=== PATIENT | male | born 1945 | race Caucasian/White ===

== ENCOUNTER 2018-06-09 09:06 | Emergency (ER) | payer MEDICARE ==
[~2018-06-09] VITALS: Ht 170.2 cm; Wt 95.2 kg
[2018-06-09] MEDS ORDERED: ATOR40TA PO (09:21)
[2018-06-09] MEDS ORDERED: ASPI81CH PO (09:22)
[2018-06-09] MEDS ORDERED: VITAMIN D32000 UNI1 PO (09:31)
[2018-06-09] MEDS ORDERED: INSR10I SC (09:32)
[2018-06-09] MEDS ORDERED: INSULANPEN SC (09:32)
[2018-06-09] MEDS ORDERED: LIOT5 PO (09:33)
[2018-06-09] MEDS ORDERED: LEVSOD137 PO (09:33)
[2018-06-09] MEDS ORDERED: LOSA50 PO (09:33)
[2018-06-09] MEDS ORDERED: Hair, Skin & N1 EACH PO (09:34)
[2018-06-09] MEDS ORDERED: OCUVITE ADULT1 EACH PO (09:34)
[2018-06-09 09:44] LABS: Hematocrit 44.4 % (37.0-53.0); Hemoglobin 14.6 g/dL (13.5-17.5); Mean Corpuscular HGB 29.3 pg (26.0-34.0); Mean Corpuscular HGB Conc 32.9 g/dL (31.5-36.5); Mean Corpuscular Volume 89 fL (80-100); Mean Platelet Volume 11.7 fL (9.1-12.4); Platelet Count 167 K/mm3 (150-400); RDW Coefficient Variation 15.1 % (11.7-14.2); RDW Standard Deviation 49.7 fL (35.1-46.3); Red Blood Cell Count 4.98 M/mm3 (4.30-5.90)
[2018-06-09 10:06] LABS: Alanine Aminotransfer (ALT/SGP 65 U/L (12-78); Albumin, Blood 3.1 g/dL (3.4-5.0); Albumin/Globulin Ratio 1.1 (0.8-1.8); Alk Phos 193 U/L (50-136); Anion Gap 8 mmol/L (6-16); Aspartate Aminotrans (AST/SGOT 52 U/L (12-37); Bilirubin, Total 0.6 mg/dL (0.1-1.0); Blood Urea Nitrogen 21 mg/dL (8-24); Bun/Creatinine Ratio 15.9 (12.0-20.0); CO2, Blood 24 mmol/L (21-32); Calcium, Blood 8.3 mg/dL (8.5-10.1); Chloride, Blood 105 mmol/L (98-108); Creatinine, Blood 1.32 mg/dL (0.60-1.20); Globulin, Blood 2.7 g/dL (2.2-4.0); Glomerular Filtration Rate 56 (60-); Glucose, Blood 203 mg/dL (70-99); Potassium, Blood 4.3 mmol/L (3.5-5.5); Sodium, Blood 137 mmol/L (136-145); Total Protein, Blood 5.8 g/dL (6.4-8.2); Troponin I <0.015 ng/mL (0.000-0.040)
[2018-06-09 10:10] LABS: BAND PERCENT MAN 4 % (0-8); BASOPHILS PERCENT MAN 0 % (0-2); EOSINOPHILS ABSOLUTE MAN 0.09 K/mm3 (0.00-0.68); EOSINOPHILS PERCENT MAN 1 % (0-6); LYMPHOCYTES % ATYPICAL MANUAL 7 % (0-0); LYMPHOCYTES ABSOLUTE MAN 1.86 K/mm3 (0.84-5.20); LYMPHOCYTES PERCENT MAN 12 % (21-46); MONOCYTES ABSOLUTE MAN 0.58 K/mm3 (0.16-1.47); MONOCYTES PERCENT MAN 6 % (4-13); MYELOCYTE ABSOLUTE MAN 0.09 K/mm3 (0.00-0.00); MYELOCYTE PERCENT MAN 1 % (0-0); NEUTROPHILS ABSOLUTE MAN 7.15 K/mm3 (1.96-9.15); SEG NEUTROPHILS PERCENT MAN 69 % (41-73); TOTAL CELLS COUNTED 100
[2018-06-09] MEDS ORDERED: Norco 5-325 Ta1 EACH PO (10:19)
== END 2018-06-09 10:45 | disposition home or self-care (01) ==
LOC: ER 09:06
PROVIDERS: Internal Medicine
DX: S29.9XXA Unspecified injury of thorax, initial encounter (principal); E03.9 Hypothyroidism, unspecified; E78.5 Hyperlipidemia, unspecified; I10 Essential (primary) hypertension; Z79.899 Other long term (current) drug therapy; Z79.4 Long term (current) use of insulin; X58.XXXA Exposure to other specified factors, initial encounter
CPT/HCPCS: 36415; 71046; 80053; 84484; 85025; 93005; 93010; 99285-25

== ENCOUNTER 2019-06-27 13:22 | Emergency (ER) | payer MEDICARE ==
[~2019-06-27] VITALS: Ht 167.6 cm; Wt 81.7 kg
[~2019-06-27 13:22] MED LIST: ASPI81CH PO; ATOR40TA PO; Hair, Skin & N1 EACH PO; INSR10I SC; INSULANPEN SC; LEVSOD137 PO; LIOT5 PO; LOSA50 PO; Norco 5-325 Ta1 EACH PO; OCUVITE ADULT1 EACH PO; VITAMIN D32000 UNI1 PO
[2019-06-27] MEDS ORDERED: FURO20 PO (13:59)
[2019-06-27] MEDS ORDERED: METF500 PO (13:59)
[2019-06-27] MEDS ORDERED: HYDHCL25 (14:00)
[2019-06-27] MEDS ORDERED: ZOLOFT50 MG PO (14:00)
[2019-06-27 14:13] LABS: BASOPHILS ABSOLUTE AUTO 0.09 K/mm3 (0.00-0.23); BASOPHILS PERCENT AUTO 1 % (0-2); EOSINOPHILS ABSOLUTE AUTO 0.22 K/mm3 (0.00-0.68); EOSINOPHILS PERCENT AUTO 3 % (0-6); Hematocrit 43.4 % (37.0-53.0); Hemoglobin 13.9 g/dL (13.5-17.5); IMMATURE GRAN ABSOLUTE AUTO 0.04 K/mm3 (0.00-0.10); IMMATURE GRAN PERCENT AUTO 1 % (0-1); LYMPHOCYTES ABSOLUTE AUTO 2.86 K/mm3 (0.84-5.20); LYMPHOCYTES PERCENT AUTO 35 % (21-46); MONOCYTES ABSOLUTE AUTO 0.59 K/mm3 (0.16-1.47); MONOCYTES PERCENT AUTO 7 % (4-13); Mean Corpuscular HGB 29.9 pg (26.0-34.0); Mean Corpuscular Volume 93 fL (80-100); Mean Platelet Volume 11.6 fL (9.1-12.4); NEUTROPHILS ABSOLUTE AUTO 4.39 K/mm3 (1.96-9.15); NEUTROPHILS PERCENT AUTO 54 % (41-73); Platelet Count 198 K/mm3 (150-400); RDW Coefficient Variation 14.2 % (11.7-14.2); RDW Standard Deviation 48.7 fL (35.1-46.3); Red Blood Cell Count 4.65 M/mm3 (4.30-5.90); White Blood Cell Count 8.19 K/mm3 (4.00-11.30)
[2019-06-27 14:28] LABS: Acetaminophen, Random <2.0 ug/mL (10.0-30.0); Alanine Aminotransfer (ALT/SGP 26 U/L (12-78); Albumin, Blood 3.3 g/dL (3.4-5.0); Albumin/Globulin Ratio 1.1 (0.8-1.8); Alk Phos 107 U/L (50-136); Anion Gap 4 mmol/L (6-16); Aspartate Aminotrans (AST/SGOT 25 U/L (12-37); Bilirubin, Total 0.4 mg/dL (0.1-1.0); Blood Urea Nitrogen 18 mg/dL (8-24); Bun/Creatinine Ratio 17.8 (12.0-20.0); CO2, Blood 31 mmol/L (21-32); Calcium, Blood 8.6 mg/dL (8.5-10.1); Chloride, Blood 99 mmol/L (98-108); Creatinine, Blood 1.01 mg/dL (0.60-1.20); Ethanol (Alcohol), Blood, Med <3 mg/dL; Globulin, Blood 2.9 g/dL (2.2-4.0); Glomerular Filtration Rate >60 (60-); Glucose, Blood 306 mg/dL (70-99); Potassium, Blood 4.6 mmol/L (3.5-5.5); Salicylate <1.7 mg/dL (2.8-20.0); Sodium, Blood 134 mmol/L (136-145); Total Protein, Blood 6.2 g/dL (6.4-8.2)
[2019-06-27] MEDS ORDERED: PRAZ2 PO (15:52)
== END 2019-06-27 16:20 | disposition home or self-care (01) ==
LOC: ER 13:22
PROVIDERS: Physician Assistant
DX: F43.10 Post-traumatic stress disorder, unspecified (principal); Z79.899 Other long term (current) drug therapy; Z79.4 Long term (current) use of insulin
CPT/HCPCS: 36415; 80053; 85025; 99284; G0480

== ENCOUNTER 2019-09-04 11:31 | Emergency (ER) | payer MEDICARE ==
[~2019-09-04] VITALS: Ht 167.6 cm; Wt 85.7 kg
[~2019-09-04 11:31] MED LIST changes: +FURO20 PO; +HYDHCL25; +METF500 PO; +PRAZ2 PO; +ZOLOFT50 MG PO
== END 2019-09-04 13:16 | disposition home or self-care (01) ==
LOC: ER 11:31
DX: J40 Bronchitis, not specified as acute or chronic (principal); J06.9 Acute upper respiratory infection, unspecified; E11.9 Type 2 diabetes mellitus without complications; I10 Essential (primary) hypertension; E03.9 Hypothyroidism, unspecified; F43.10 Post-traumatic stress disorder, unspecified; Z79.4 Long term (current) use of insulin; Z79.899 Other long term (current) drug therapy
CPT/HCPCS: 71046; 99283-25

== ENCOUNTER 2019-10-26 11:08 | Emergency (ER) | payer MEDICARE ==
[~2019-10-26] VITALS: Ht 167.6 cm; Wt 88.0 kg
[2019-10-26] MEDS ORDERED: Naproxen375 MG PO (12:36)
== END 2019-10-26 13:05 | disposition home or self-care (01) ==
LOC: ER 11:08
DX: M54.16 Radiculopathy, lumbar region (principal); I10 Essential (primary) hypertension; E11.9 Type 2 diabetes mellitus without complications; E78.5 Hyperlipidemia, unspecified; F43.10 Post-traumatic stress disorder, unspecified; E03.9 Hypothyroidism, unspecified; Z79.899 Other long term (current) drug therapy; Z79.4 Long term (current) use of insulin
CPT/HCPCS: 72100; 99283-25

== ENCOUNTER → 2020-05-10 | Outpatient (CLI) | payer MEDICARE ==
[~2020-05-10] MED LIST changes: +Naproxen375 MG PO
[2020-05-10 10:31] LABS: BASOPHILS ABSOLUTE AUTO 0.05 K/mm3 (0.00-0.23); BASOPHILS PERCENT AUTO 1 % (0-2); EOSINOPHILS ABSOLUTE AUTO 0.25 K/mm3 (0.00-0.68); EOSINOPHILS PERCENT AUTO 4 % (0-6); Hematocrit 39.9 % (37.0-53.0); Hemoglobin 13.3 g/dL (13.5-17.5); IMMATURE GRAN ABSOLUTE AUTO 0.03 K/mm3 (0.00-0.10); IMMATURE GRAN PERCENT AUTO 1 % (0-1); LYMPHOCYTES ABSOLUTE AUTO 2.08 K/mm3 (0.84-5.20); LYMPHOCYTES PERCENT AUTO 32 % (21-46); MONOCYTES ABSOLUTE AUTO 0.58 K/mm3 (0.16-1.47); MONOCYTES PERCENT AUTO 9 % (4-13); Mean Corpuscular HGB 30.1 pg (26.0-34.0); Mean Corpuscular HGB Conc 33.3 g/dL (31.5-36.5); Mean Corpuscular Volume 90 fL (80-100); Mean Platelet Volume 11.2 fL (9.1-12.4); NEUTROPHILS ABSOLUTE AUTO 3.45 K/mm3 (1.96-9.15); NEUTROPHILS PERCENT AUTO 54 % (41-73); Platelet Count 161 K/mm3 (150-400); RDW Coefficient Variation 13.9 % (11.7-14.2); RDW Standard Deviation 46.4 fL (35.1-46.3); Red Blood Cell Count 4.42 M/mm3 (4.30-5.90); White Blood Cell Count 6.44 K/mm3 (4.00-11.30)
[2020-05-10 10:48] LABS: Alanine Aminotransfer (ALT/SGP 27 U/L (12-78); Albumin, Blood 3.2 g/dL (3.4-5.0); Albumin/Globulin Ratio 1.1 (0.8-1.8); Alk Phos 104 U/L (40-126); Anion Gap 7 mmol/L (6-16); Aspartate Aminotrans (AST/SGOT 24 U/L (12-37); Bilirubin, Total 0.4 mg/dL (0.1-1.0); Blood Urea Nitrogen 17 mg/dL (8-24); Bun/Creatinine Ratio 14.5 (12.0-20.0); CO2, Blood 28 mmol/L (21-32); Calcium, Blood 8.5 mg/dL (8.5-10.1); Chloride, Blood 101 mmol/L (98-108); Creatinine, Blood 1.17 mg/dL (0.60-1.20); Globulin, Blood 2.8 g/dL (2.2-4.0); Glomerular Filtration Rate >60 (60-); Glucose, Blood 277 mg/dL (70-99); Potassium, Blood 4.1 mmol/L (3.5-5.5); Sodium, Blood 136 mmol/L (136-145); Thyroid Stimulating Hormone 3.943 uIU/mL (0.360-4.800)
[2020-05-10 10:52] LABS: Troponin I <0.017 ng/mL (0.000-0.040)
== END | disposition home or self-care (01) ==
LOC: LAB EV 10:19 → LAB SHORT 10:19
PROVIDERS: Physician Assistant
DX: R53.83 Other fatigue (principal)
CPT/HCPCS: 80053; 84443; 84484; 85025

== ENCOUNTER 2020-10-16 12:28 | Observation (INO) | payer MEDICARE ==
[~2020-10-16] VITALS: Ht 167.6 cm; Wt 81.8 kg
[~2020-10-16 12:28] MED LIST changes: +HUMULIN R100 UNIT/1 SC; -INSR10I SC
[2020-10-16 13:33] LABS: Source, Urine Clean Catch
[2020-10-16 13:41] LABS: BASOPHILS ABSOLUTE AUTO 0.06 K/mm3 (0.00-0.23); BASOPHILS PERCENT AUTO 1 % (0-2); EOSINOPHILS ABSOLUTE AUTO 0.11 K/mm3 (0.00-0.68); EOSINOPHILS PERCENT AUTO 1 % (0-6); Hematocrit 43.4 % (37.0-53.0); Hemoglobin 13.5 g/dL (13.5-17.5); IMMATURE GRAN ABSOLUTE AUTO 0.04 K/mm3 (0.00-0.10); IMMATURE GRAN PERCENT AUTO 0 % (0-1); LYMPHOCYTES ABSOLUTE AUTO 1.99 K/mm3 (0.84-5.20); LYMPHOCYTES PERCENT AUTO 20 % (21-46); MONOCYTES PERCENT AUTO 8 % (4-13); Mean Corpuscular HGB 28.4 pg (26.0-34.0); Mean Corpuscular HGB Conc 31.1 g/dL (31.5-36.5); Mean Corpuscular Volume 91 fL (80-100); Mean Platelet Volume 11.7 fL (9.1-12.4); NEUTROPHILS ABSOLUTE AUTO 6.99 K/mm3 (1.96-9.15); NEUTROPHILS PERCENT AUTO 70 % (41-73); Platelet Count 210 K/mm3 (150-400); RDW Coefficient Variation 15.6 % (11.7-14.2); RDW Standard Deviation 52.8 fL (35.1-46.3); Red Blood Cell Count 4.75 M/mm3 (4.30-5.90); White Blood Cell Count 9.99 K/mm3 (4.00-11.30)
[2020-10-16 13:43] LABS: Bilirubin, Urine Neg (Neg); Blood, Urine Neg (Neg); Glucose Qualitative, Urine 4+ (Neg); Ketones, Urine 1+ (Neg); Leukocyte Esterase, Urine Neg (Neg); Nitrite, Urine Neg (Neg); Protein, Urine Neg (Neg); Specific Gravity, Urine 1.015 (1.003-1.022); Urobilinogen, Urine NORM (Normal)
[2020-10-16 13:50] LABS: Appearance, Urine Clear (Clear); Color, Urine Pale Yellow (P-Yellow)
[2020-10-16] MEDS ORDERED: ARIPIPRAZOLE10 M1 PO (13:51)
[2020-10-16] MEDS ORDERED: EUTHYROX100 MC1 PO (13:51)
[2020-10-16] MEDS ORDERED: GABA100 PO (13:52)
[2020-10-16] MEDS ORDERED: SERT100 PO (13:52)
[2020-10-16 13:56] LABS: U Amphetamine Screen Not Detected; U Barbituate Screen Not Detected; U Benzodiazapine Screen Not Detected; U Buprenorphine Screen Not Detected; U Cannabinoids Screen Not Detected; U Cocaine Screen Not Detected; U Methadone Screen Not Detected; U Methamphetamine Screen Not Detected; U Opiates Screen Not Detected; U Oxycodone Screen Not Detected; U Phencyclidine Screen Not Detected; U Propoxyphene Screen Not Detected
[2020-10-16] MEDS ORDERED: Aspirin EC81 MG PO (14:01)
[2020-10-16] MEDS ORDERED: INSULIN AS100 UNIT/9 SC (14:01)
[2020-10-16 14:18] LABS: Alanine Aminotransfer (ALT/SGP 27 U/L (12-78); Albumin, Blood 3.6 g/dL (3.4-5.0); Albumin/Globulin Ratio 1.2 (0.8-1.8); Alk Phos 138 U/L (50-136); Anion Gap 5 mmol/L (6-16); Aspartate Aminotrans (AST/SGOT 25 U/L (12-37); Bilirubin, Total 0.5 mg/dL (0.1-1.0); Blood Urea Nitrogen 24 mg/dL (8-24); Bun/Creatinine Ratio 20.9 (12.0-20.0); CO2, Blood 27 mmol/L (21-32); Calcium, Blood 8.7 mg/dL (8.5-10.1); Chloride, Blood 98 mmol/L (98-108); Creatinine, Blood 1.15 mg/dL (0.60-1.20); Ethanol (Alcohol), Blood, Med <3 mg/dL; Glomerular Filtration Rate >60 (60-); Glucose, Blood 561 mg/dL (70-99); Potassium, Blood 4.7 mmol/L (3.5-5.5); Salicylate <1.7 mg/dL (2.8-20.0); Sodium, Blood 130 mmol/L (136-145); Total Protein, Blood 6.6 g/dL (6.4-8.2)
[2020-10-16 14:23] LABS: Acetaminophen, Random <2.0 ug/mL (10.0-30.0)
[2020-10-16 17:40] LABS: Influenza A, PCR NEGATIVE (NEGATIVE); Influenza B, PCR NEGATIVE (NEGATIVE); Resp Syncytial Virus, PCR NEGATIVE (NEGATIVE); SARS-Cov-2 (COVID-19) PCR, MMC NEGATIVE (NEGATIVE)
[2020-10-16 20:22] LABS: Glucose, Blood 681 mg/dL (70-99)
--- NOTE | 2020-10-16 20:52 | NUR ---
REPORT RECEIVED 2024 FROM TIRE LAYER. PT TRANSPORTED AND ARRIVED IN ICU ROOM 10 VIA STRETCHER ON RA. A&O. PT STAND AND WALK TO ICU BED, NO DISTRESS NOTED. VITALS DONE, NOTED IN FLOWSHEET, STABLE AT THIS TIME. MD & PICK AND SHOVEL WORKER AWARE OF PT ARRIVAL. PT IS A HOLD-VISIUAL MONITOR ON IN ROOM. CONTINUE ASSESSMENT AND CARE.
--- NOTE | 2020-10-16 21:24 | NUR ---
NOTIFIED-PT WITH HIGH CBG'S. PT ON FLOOR. IVF, INSULIN GTT ORDERED. ADA DIET ORDERED. CONTINUE ADMIT
--- NOTE | 2020-10-16 23:09 | NUR ---
DR. CARVER AT BEDSIDE. AWARE OF INCREASED CBG, AND AWARE OF HIGH SUICIDE RISK LEVEL. LEATHER CRAFTSMAN AWARE.
[2020-10-16 23:58] LABS: Free Thyroxine 1.28 ng/dL (0.70-1.60)
[2020-10-16 23:59] LABS: Glucose, Blood 554 mg/dL (70-99); Thyroid Stimulating Hormone 0.791 uIU/mL (0.360-4.800)
--- NOTE | 2020-10-17 01:00 | NUR ---
ASSESS PT REMAINS CALM, ANSWERS QUESTIONS, SAMANO, ABLE TO TURN SELF IN BED, ON RA, CONTINUE INSULIN GTT TITRATION AND IVF @ 75 ML/HR. CONTINUE ASSESSMENTS AND CARE.
[2020-10-17 03:17] LABS: BASOPHILS ABSOLUTE AUTO 0.06 K/mm3 (0.00-0.23); BASOPHILS PERCENT AUTO 1 % (0-2); EOSINOPHILS ABSOLUTE AUTO 0.21 K/mm3 (0.00-0.68); EOSINOPHILS PERCENT AUTO 3 % (0-6); IMMATURE GRAN ABSOLUTE AUTO 0.02 K/mm3 (0.00-0.10); IMMATURE GRAN PERCENT AUTO 0 % (0-1); LYMPHOCYTES PERCENT AUTO 37 % (21-46); MONOCYTES ABSOLUTE AUTO 0.78 K/mm3 (0.16-1.47); MONOCYTES PERCENT AUTO 12 % (4-13); Mean Corpuscular HGB 28.8 pg (26.0-34.0); Mean Corpuscular HGB Conc 32.4 g/dL (31.5-36.5); Mean Corpuscular Volume 89 fL (80-100); Mean Platelet Volume 11.4 fL (9.1-12.4); NEUTROPHILS ABSOLUTE AUTO 3.04 K/mm3 (1.96-9.15); NEUTROPHILS PERCENT AUTO 47 % (41-73); Platelet Count 190 K/mm3 (150-400); RDW Coefficient Variation 15.3 % (11.7-14.2); RDW Standard Deviation 50.2 fL (35.1-46.3); Red Blood Cell Count 4.17 M/mm3 (4.30-5.90); White Blood Cell Count 6.51 K/mm3 (4.00-11.30)
[2020-10-17 03:37] LABS: Alanine Aminotransfer (ALT/SGP 23 U/L (12-78); Albumin/Globulin Ratio 1.2 (0.8-1.8); Alk Phos 121 U/L (50-136); Anion Gap 2 mmol/L (6-16); Aspartate Aminotrans (AST/SGOT 23 U/L (12-37); Bilirubin, Total 0.3 mg/dL (0.1-1.0); Blood Urea Nitrogen 25 mg/dL (8-24); Bun/Creatinine Ratio 22.7 (12.0-20.0); CO2, Blood 31 mmol/L (21-32); Calcium, Blood 8.4 mg/dL (8.5-10.1); Chloride, Blood 104 mmol/L (98-108); Globulin, Blood 2.5 g/dL (2.2-4.0); Glomerular Filtration Rate >60 (60-); Glucose, Blood 215 mg/dL (70-99); Potassium, Blood 4.2 mmol/L (3.5-5.5); Sodium, Blood 137 mmol/L (136-145); Total Protein, Blood 5.5 g/dL (6.4-8.2)
--- NOTE | 2020-10-17 04:00 | NUR ---
ASSESS PT A&O, CALM. INSULIN GTT OFF @ THIS TIME, SEE RESULTS FOR CBG'S. VITALS STABLE, PT REMAINS IN SB 50'S WITH NO SYMPTOMS. CONTINUE TO ASSESS.
--- NOTE | 2020-10-17 06:24 | NUR ---
END OF SHIFT PT REMAINS CALM AND COOPERATIVE T/O NIGHT. INSULIN GTT NOW OFF. LONG ACTING DOSE GIVEN, SEE MAR. NS INFUSING @ 75 ML/HR. VITALS STABLE. CONTINUE CARE.
--- NOTE | 2020-10-17 10:51 | NUR ---
PT IS A/O AND APPROP. BUT WITHDRAWN AND VERY QUIET. PT IS COOP AND WILLING TO ALLOW ASSISTANCE WITH CARE. FEEDING SELF AND EASILY UP TO CHAIR WITH SBA. DR PATEL HAS BEEN IN TO VIST PT.
--- NOTE | 2020-10-17 13:09 | NUR ---
ADMIT: 10/16/20 DISCHARGE: DX: agitation, hallucinations, and suicidal ideation. CC: ALLA CALL: RESIDENCE: Home with spouse CAREGIVER: Maira Mayen, Spouse / Partner, DX: Depressive disorder, HTN, DM-type 2, see list DME: DM supplies CCM: Referral- 08/2020 HOME HEALTH: none SUMMARY: Admit: 10/16/20 10/17/20- per chart review with Dr. Driscoll, he is trying to get pt admitted into a psychiatric in hospital in [place]. There are calls out to facilities in [place] for placement. Once a place has been found, will update. Dr. crouch state that he thinks is agreeable to this plan. -tamera
--- NOTE | 2020-10-17 16:00 | NUR ---
PT IN TO VISIT AND UPDATED RE PT STATUS. PT AND INFORMED OF EARLY PM TRANSPORT VIA [facility] TO [facility]. PAPER WORK BEING COMPILED.
--- NOTE | 2020-10-17 18:29 | NUR ---
1800 PT DISCHARGED TO [facility]. PT FINISHING SUPPER AND WAS GIVEN TRAY BEFORE CBG WAS RECORDED. IV'S WERE REMOVED INTACT AND PT BELONGING ALL PLACED IN PT [place] AND TAKEN TO CAR, THEN PT TO CAR VIA W/C. ETA AND LAST MINUTE UPDATE REPORT CALLED TO [facility] AND AUGUST [address] REPORT FAXED PER REQUEST TO [facility] [phone]. PT REMAINED A/O, COOPERATIVE, AND PLEASANT WTIH ALL OF CARE THIS DAY.
== END 2020-10-17 17:57 | disposition short-term general hospital (02) ==
LOC: ER 12:28 → EOR 12:29 → ICUW 19:07
PROVIDERS: Emergency Medicine; Physician Assistant; ADMIT Internal Medicine
DX: F33.1 Major depressive disorder, recurrent, moderate (principal); F43.12 Post-traumatic stress disorder, chronic; E11.65 Type 2 diabetes mellitus with hyperglycemia; I10 Essential (primary) hypertension; E78.5 Hyperlipidemia, unspecified; E03.9 Hypothyroidism, unspecified; Z79.4 Long term (current) use of insulin; Z20.822 Contact with and (suspected) exposure to COVID-19
CPT/HCPCS: 0241U; 36415; 80053; 81003; 82947; 84439; 84443; 85025; 96372; 99285; A9270; G0378; G0480; J1650; J1815; J7030; Q3014

== ENCOUNTER 2021-01-02 20:46 | Emergency (ER) | payer MEDICARE | END 2021-01-03 00:30 | disposition home or self-care (01) | LOC: ER 20:46 | DX: T43.221A Poisoning by selective serotonin reuptake inhibitors, accidental (unintentional), initial encounter (principal); E03.9 Hypothyroidism, unspecified; E11.9 Type 2 diabetes mellitus without complications; I10 Essential (primary) hypertension; E78.5 Hyperlipidemia, unspecified; Z79.4 Long term (current) use of insulin; Z79.899 Other long term (current) drug therapy ==

== ENCOUNTER 2021-01-18 22:27 | Observation (INO) | payer OTHER ==
[~2021-01-18] VITALS: Ht 170.2 cm; Wt 83.5 kg
[~2021-01-18 22:27] MED LIST changes: +ARIPIPRAZOLE10 M1 PO; +Aspirin EC81 MG PO; +EUTHYROX100 MC1 PO; +GABA100 PO; +INSULIN AS100 UNIT/9 SC; +SERT100 PO
[2021-01-19 00:42] LABS: U Amphetamine Screen Not Detected; U Barbituate Screen Not Detected; U Benzodiazapine Screen Not Detected; U Buprenorphine Screen Not Detected; U Cannabinoids Screen Not Detected; U Cocaine Screen Not Detected; U Methadone Screen Not Detected; U Methamphetamine Screen Not Detected; U Opiates Screen Not Detected; U Oxycodone Screen Not Detected; U Phencyclidine Screen Not Detected; U Propoxyphene Screen Not Detected
[2021-01-19 00:54] LABS: BASOPHILS ABSOLUTE AUTO 0.03 K/mm3 (0.00-0.23); BASOPHILS PERCENT AUTO 0 % (0-2); EOSINOPHILS PERCENT AUTO 0 % (0-6); Hemoglobin 14.1 g/dL (13.5-17.5); IMMATURE GRAN ABSOLUTE AUTO 0.04 K/mm3 (0.00-0.10); IMMATURE GRAN PERCENT AUTO 0 % (0-1); LYMPHOCYTES ABSOLUTE AUTO 2.85 K/mm3 (0.84-5.20); LYMPHOCYTES PERCENT AUTO 32 % (21-46); MONOCYTES ABSOLUTE AUTO 0.96 K/mm3 (0.16-1.47); MONOCYTES PERCENT AUTO 11 % (4-13); Mean Corpuscular HGB 29.6 pg (26.0-34.0); Mean Corpuscular HGB Conc 32.8 g/dL (31.5-36.5); Mean Corpuscular Volume 90 fL (80-100); Mean Platelet Volume 11.2 fL (9.1-12.4); NEUTROPHILS ABSOLUTE AUTO 5.14 K/mm3 (1.96-9.15); NEUTROPHILS PERCENT AUTO 57 % (41-73); Platelet Count 233 K/mm3 (150-400); RDW Coefficient Variation 13.2 % (11.7-14.2); RDW Standard Deviation 43.9 fL (35.1-46.3); Red Blood Cell Count 4.76 M/mm3 (4.30-5.90); White Blood Cell Count 9.02 K/mm3 (4.00-11.30)
[2021-01-19 01:15] LABS: Acetaminophen, Random <2.0 ug/mL (10.0-30.0); Alanine Aminotransfer (ALT/SGP 30 U/L (12-78); Albumin, Blood 3.5 g/dL (3.4-5.0); Albumin/Globulin Ratio 1.1 (0.8-1.8); Alk Phos 116 U/L (50-136); Anion Gap 4 mmol/L (6-16); Aspartate Aminotrans (AST/SGOT 22 U/L (12-37); Bilirubin, Total 0.3 mg/dL (0.1-1.0); Blood Urea Nitrogen 23 mg/dL (8-24); Bun/Creatinine Ratio 20.9 (12.0-20.0); CO2, Blood 29 mmol/L (21-32); Calcium, Blood 8.9 mg/dL (8.5-10.1); Chloride, Blood 105 mmol/L (98-108); Ethanol (Alcohol), Blood, Med <3 mg/dL; Globulin, Blood 3.2 g/dL (2.2-4.0); Glomerular Filtration Rate >60 (60-); Glucose, Blood 151 mg/dL (70-99); Potassium, Blood 3.8 mmol/L (3.5-5.5); Salicylate <1.7 mg/dL (2.8-20.0); Sodium, Blood 138 mmol/L (136-145); Total Protein, Blood 6.7 g/dL (6.4-8.2)
[2021-01-19 01:44] LABS: SARS-Cov-2 (COVID-19) PCR, MMC NEGATIVE (NEGATIVE)
[2021-01-19] MEDS ORDERED: ABILIFY MYCITE5 M1 PO (13:27)
== END 2021-01-19 14:00 | disposition home or self-care (01) ==
LOC: ER 22:27 → EOR 22:28
PROVIDERS: ADMIT Emergency Medicine
DX: F43.10 Post-traumatic stress disorder, unspecified (principal); F33.9 Major depressive disorder, recurrent, unspecified; E03.9 Hypothyroidism, unspecified; E11.9 Type 2 diabetes mellitus without complications; I10 Essential (primary) hypertension; E78.5 Hyperlipidemia, unspecified; Z91.5 Personal history of self-harm; Z20.822 Contact with and (suspected) exposure to COVID-19; Z79.4 Long term (current) use of insulin; Z79.82 Long term (current) use of aspirin
CPT/HCPCS: 36415; 80053; 82947; 85025; 93005; 93010; 99285; G0378; G0480; Q3014; U0004

== ENCOUNTER 2021-01-27 11:03 | Emergency (ER) | payer OTHER ==
[~2021-01-27] VITALS: Ht 167.6 cm; Wt 78.0 kg
[~2021-01-27 11:03] MED LIST changes: +ABILIFY MYCITE5 M1 PO
[2021-01-27] MEDS ORDERED: ARTIFICIAL TEAR15 M4 BOTHEYES (14:18)
== END 2021-01-27 14:26 | disposition home or self-care (01) ==
LOC: ER 11:03
DX: T65.893A Toxic effect of other specified substances, assault, initial encounter (principal); J68.0 Bronchitis and pneumonitis due to chemicals, gases, fumes and vapors; H10.212 Acute toxic conjunctivitis, left eye
CPT/HCPCS: 99283; A9270

== ENCOUNTER 2021-03-30 14:38 | Emergency (ER) | payer MEDICARE ==
[~2021-03-30] VITALS: Ht 167.6 cm; Wt 82.5 kg
[~2021-03-30 14:38] MED LIST changes: +ARTIFICIAL TEAR15 M4 BOTHEYES
[2021-03-30 15:28] LABS: BASOPHILS ABSOLUTE AUTO 0.06 K/mm3 (0.00-0.23); BASOPHILS PERCENT AUTO 1 % (0-2); EOSINOPHILS PERCENT AUTO 0 % (0-6); Hematocrit 45.2 % (37.0-53.0); Hemoglobin 14.8 g/dL (13.5-17.5); IMMATURE GRAN ABSOLUTE AUTO 0.04 K/mm3 (0.00-0.10); IMMATURE GRAN PERCENT AUTO 0 % (0-1); LYMPHOCYTES ABSOLUTE AUTO 2.24 K/mm3 (0.84-5.20); LYMPHOCYTES PERCENT AUTO 22 % (21-46); MONOCYTES PERCENT AUTO 7 % (4-13); Mean Corpuscular HGB Conc 32.7 g/dL (31.5-36.5); Mean Corpuscular Volume 89 fL (80-100); NEUTROPHILS ABSOLUTE AUTO 7.18 K/mm3 (1.96-9.15); NEUTROPHILS PERCENT AUTO 70 % (41-73); Platelet Count 260 K/mm3 (150-400); RDW Coefficient Variation 14.1 % (11.7-14.2); RDW Standard Deviation 45.7 fL (35.1-46.3); Red Blood Cell Count 5.11 M/mm3 (4.30-5.90); White Blood Cell Count 10.22 K/mm3 (4.00-11.30)
[2021-03-30 15:40] LABS: Acetaminophen, Random <2.0 ug/mL (10.0-30.0); Alanine Aminotransfer (ALT/SGP 27 U/L (12-78); Albumin, Blood 3.7 g/dL (3.4-5.0); Albumin/Globulin Ratio 1.1 (0.8-1.8); Alk Phos 145 U/L (50-136); Anion Gap 5 mmol/L (6-16); Aspartate Aminotrans (AST/SGOT 20 U/L (12-37); Bilirubin, Total 0.5 mg/dL (0.1-1.0); Blood Urea Nitrogen 18 mg/dL (8-24); Bun/Creatinine Ratio 16.5 (12.0-20.0); CO2, Blood 28 mmol/L (21-32); Calcium, Blood 9.3 mg/dL (8.5-10.1); Chloride, Blood 103 mmol/L (98-108); Creatinine, Blood 1.09 mg/dL (0.60-1.20); Ethanol (Alcohol), Blood, Med <3 mg/dL; Globulin, Blood 3.4 g/dL (2.2-4.0); Glomerular Filtration Rate >60 (60-); Glucose, Blood 276 mg/dL (70-99); Potassium, Blood 4.2 mmol/L (3.5-5.5); Salicylate <1.7 mg/dL (2.8-20.0); Sodium, Blood 136 mmol/L (136-145); Total Protein, Blood 7.1 g/dL (6.4-8.2)
[2021-03-30] MEDS ORDERED: ERYT.5TO RIGHTEYE (17:51)
== END 2021-03-30 18:05 | disposition home or self-care (01) ==
LOC: ER 14:38
PROVIDERS: Physician Assistant
DX: S05.01XA Injury of conjunctiva and corneal abrasion without foreign body, right eye, initial encounter (principal); E03.9 Hypothyroidism, unspecified; E11.9 Type 2 diabetes mellitus without complications; E78.5 Hyperlipidemia, unspecified; I10 Essential (primary) hypertension; Z79.899 Other long term (current) drug therapy; X58.XXXA Exposure to other specified factors, initial encounter
CPT/HCPCS: 36415; 80053; 85025; 99284; A9270; G0480

== ENCOUNTER 2021-04-01 14:39 | Emergency (ER) | payer MEDICARE ==
[~2021-04-01] VITALS: Ht 167.6 cm; Wt 83.5 kg
[~2021-04-01 14:39] MED LIST changes: +ERYT.5TO RIGHTEYE
== END 2021-04-01 15:30 | disposition home or self-care (01) ==
LOC: ER 14:39
DX: S60.221A Contusion of right hand, initial encounter (principal); M25.531 Pain in right wrist; I10 Essential (primary) hypertension; E11.9 Type 2 diabetes mellitus without complications; E03.9 Hypothyroidism, unspecified; E78.5 Hyperlipidemia, unspecified; Z79.899 Other long term (current) drug therapy; Z79.4 Long term (current) use of insulin; Z79.82 Long term (current) use of aspirin; W22.8XXA Striking against or struck by other objects, initial encounter
CPT/HCPCS: 73130; 99283-25

== ENCOUNTER 2021-05-07 17:03 | Observation (INO) | payer MEDICARE ==
[~2021-05-07] VITALS: Ht 167.6 cm; Wt 83.5 kg
[2021-05-07 17:50] LABS: Source, Urine Clean Catch
[2021-05-07 17:58] LABS: BASOPHILS ABSOLUTE AUTO 0.07 K/mm3 (0.00-0.23); BASOPHILS PERCENT AUTO 1 % (0-2); EOSINOPHILS PERCENT AUTO 0 % (0-6); Hemoglobin 14.5 g/dL (13.5-17.5); IMMATURE GRAN ABSOLUTE AUTO 0.01 K/mm3 (0.00-0.10); IMMATURE GRAN PERCENT AUTO 0 % (0-1); LYMPHOCYTES ABSOLUTE AUTO 3.05 K/mm3 (0.84-5.20); LYMPHOCYTES PERCENT AUTO 39 % (21-46); MONOCYTES ABSOLUTE AUTO 0.69 K/mm3 (0.16-1.47); MONOCYTES PERCENT AUTO 9 % (4-13); Mean Corpuscular Volume 88 fL (80-100); Mean Platelet Volume 11.9 fL (9.1-12.4); NEUTROPHILS ABSOLUTE AUTO 3.92 K/mm3 (1.96-9.15); NEUTROPHILS PERCENT AUTO 51 % (41-73); Platelet Count 212 K/mm3 (150-400); RDW Coefficient Variation 14.1 % (11.7-14.2); RDW Standard Deviation 45.5 fL (35.1-46.3); White Blood Cell Count 7.74 K/mm3 (4.00-11.30)
[2021-05-07 18:12] LABS: Appearance, Urine Clear (Clear); Bilirubin, Urine Neg (Neg); Blood, Urine Neg (Neg); Color, Urine Yellow (P-Yellow); Glucose Qualitative, Urine 3+ (Neg); Ketones, Urine 2+ (Neg); Leukocyte Esterase, Urine Neg (Neg); Nitrite, Urine Neg (Neg); Protein, Urine 2+ (Neg); Specific Gravity, Urine 1.015 (1.003-1.022); Urobilinogen, Urine NORM (Normal); pH, Urine 6.5 (5.0-8.0)
[2021-05-07 18:22] LABS: Bacteria Few /hpf
[2021-05-07 18:23] LABS: Acetaminophen, Random <2.0 ug/mL (10.0-30.0); Alanine Aminotransfer (ALT/SGP 22 U/L (12-78); Albumin, Blood 3.3 g/dL (3.4-5.0); Albumin/Globulin Ratio 1.1 (0.8-1.8); Alk Phos 131 U/L (50-136); Anion Gap 3 mmol/L (6-16); Aspartate Aminotrans (AST/SGOT 14 U/L (12-37); Bilirubin, Total 0.5 mg/dL (0.1-1.0); Blood Urea Nitrogen 17 mg/dL (8-24); Bun/Creatinine Ratio 13.4 (12.0-20.0); CO2, Blood 32 mmol/L (21-32); Chloride, Blood 103 mmol/L (98-108); Creatinine, Blood 1.27 mg/dL (0.60-1.20); Ethanol (Alcohol), Blood, Med <3 mg/dL; Globulin, Blood 3.1 g/dL (2.2-4.0); Glomerular Filtration Rate 55 (60-); Glucose, Blood 163 mg/dL (70-99); Potassium, Blood 4.2 mmol/L (3.5-5.5); Salicylate <1.7 mg/dL (2.8-20.0); Sodium, Blood 138 mmol/L (136-145); Total Protein, Blood 6.4 g/dL (6.4-8.2)
[2021-05-07 18:23] LABS: Hyaline Casts 0-2 /lpf (0-2); Red Blood Cells, Urine Rare /hpf (0-2); Squamous Epithelial Cells Not Seen /hpf (Few); White Blood Cells, Urine Not Seen /hpf (0-5)
[2021-05-07 18:30] LABS: U Amphetamine Screen Not Detected; U Barbituate Screen Not Detected; U Benzodiazapine Screen Not Detected; U Buprenorphine Screen Not Detected; U Cannabinoids Screen Not Detected; U Cocaine Screen Not Detected; U Methadone Screen Not Detected; U Methamphetamine Screen Not Detected; U Opiates Screen Not Detected; U Oxycodone Screen Not Detected; U Phencyclidine Screen Not Detected; U Propoxyphene Screen Not Detected
[2021-05-07 18:57] LABS: SARS-Cov-2 (COVID-19) PCR, MMC NEGATIVE (NEGATIVE)
[2021-05-07 19:44] LABS: Influenza A, PCR NEGATIVE (NEGATIVE); Influenza B, PCR NEGATIVE (NEGATIVE); Resp Syncytial Virus, PCR NEGATIVE (NEGATIVE)
[2021-05-08] MEDS ORDERED: DEPAKOTE ER250 M2 PO (08:39)
[2021-05-08] MEDS ORDERED: PROP10 PO (08:40)
== END 2021-05-09 02:33 ==
LOC: ER 17:03 → EOR 17:04
PROVIDERS: Physician Assistant; ADMIT Emergency Medicine
DX: F31.9 Bipolar disorder, unspecified (principal); I10 Essential (primary) hypertension; E11.9 Type 2 diabetes mellitus without complications; E78.5 Hyperlipidemia, unspecified; E03.9 Hypothyroidism, unspecified; Z79.4 Long term (current) use of insulin; Z20.822 Contact with and (suspected) exposure to COVID-19
CPT/HCPCS: 0241U; 80053; 81001; 82947; 85025; 99285; A9270; G0378; G0480; J1815

== ENCOUNTER 2021-06-07 12:38 | Emergency (ER) | payer MEDICARE ==
[~2021-06-07] VITALS: Ht 167.6 cm; Wt 83.9 kg
[~2021-06-07 12:38] MED LIST changes: +DEPAKOTE ER250 M2 PO; +PROP10 PO
[2021-06-07] MEDS ORDERED: INSULANI SC (13:23)
[2021-06-07] MEDS ORDERED: DIVA500EC PO (13:24)
[2021-06-07 14:15] LABS: BASOPHILS ABSOLUTE AUTO 0.05 K/mm3 (0.00-0.23); BASOPHILS PERCENT AUTO 1 % (0-2); EOSINOPHILS ABSOLUTE AUTO 0.07 K/mm3 (0.00-0.68); EOSINOPHILS PERCENT AUTO 1 % (0-6); Hematocrit 41.3 % (37.0-53.0); Hemoglobin 13.8 g/dL (13.5-17.5); IMMATURE GRAN ABSOLUTE AUTO 0.04 K/mm3 (0.00-0.10); IMMATURE GRAN PERCENT AUTO 1 % (0-1); LYMPHOCYTES ABSOLUTE AUTO 2.32 K/mm3 (0.84-5.20); LYMPHOCYTES PERCENT AUTO 32 % (21-46); MONOCYTES ABSOLUTE AUTO 0.73 K/mm3 (0.16-1.47); MONOCYTES PERCENT AUTO 10 % (4-13); Mean Corpuscular HGB 29.6 pg (26.0-34.0); Mean Corpuscular HGB Conc 33.4 g/dL (31.5-36.5); Mean Corpuscular Volume 89 fL (80-100); Mean Platelet Volume 11.3 fL (9.1-12.4); NEUTROPHILS ABSOLUTE AUTO 4.14 K/mm3 (1.96-9.15); NEUTROPHILS PERCENT AUTO 56 % (41-73); Platelet Count 113 K/mm3 (150-400); RDW Coefficient Variation 14.7 % (11.7-14.2); RDW Standard Deviation 46.9 fL (35.1-46.3); Red Blood Cell Count 4.66 M/mm3 (4.30-5.90); White Blood Cell Count 7.35 K/mm3 (4.00-11.30)
[2021-06-07 15:14] LABS: Alanine Aminotransfer (ALT/SGP 24 U/L (12-78); Albumin, Blood 2.8 g/dL (3.4-5.0); Albumin/Globulin Ratio 1.1 (0.8-1.8); Alk Phos 110 U/L (50-136); Anion Gap 6 mmol/L (6-16); Aspartate Aminotrans (AST/SGOT 19 U/L (12-37); Bilirubin, Total 0.3 mg/dL (0.1-1.0); Blood Urea Nitrogen 17 mg/dL (8-24); Bun/Creatinine Ratio 14.8 (12.0-20.0); CO2, Blood 28 mmol/L (21-32); Calcium, Blood 8.4 mg/dL (8.5-10.1); Chloride, Blood 103 mmol/L (98-108); Creatinine, Blood 1.15 mg/dL (0.60-1.20); Ethanol (Alcohol), Blood, Med <3 mg/dL; Globulin, Blood 2.6 g/dL (2.2-4.0); Glomerular Filtration Rate >60 (60-); Glucose, Blood 209 mg/dL (70-99); Potassium, Blood 4.5 mmol/L (3.5-5.5); Salicylate <1.7 mg/dL (2.8-20.0); Sodium, Blood 137 mmol/L (136-145); Total Protein, Blood 5.4 g/dL (6.4-8.2)
== END 2021-06-07 16:52 | disposition home or self-care (01) ==
LOC: ER 12:38
PROVIDERS: Physician Assistant
DX: R45.1 Restlessness and agitation (principal); Z79.899 Other long term (current) drug therapy; Z79.4 Long term (current) use of insulin; Z79.82 Long term (current) use of aspirin; F43.10 Post-traumatic stress disorder, unspecified; E03.9 Hypothyroidism, unspecified; E11.9 Type 2 diabetes mellitus without complications; I10 Essential (primary) hypertension; E78.5 Hyperlipidemia, unspecified
CPT/HCPCS: 80053; 85025; G0480

== ENCOUNTER 2021-12-11 20:06 | Emergency (ER) | payer OTHER ==
[~2021-12-11] VITALS: Ht 167.6 cm; Wt 80.7 kg
[~2021-12-11 20:06] MED LIST changes: +DIVA500EC PO; +INSULANI SC
[2021-12-11 20:33] LABS: Hematocrit 42.5 % (37.0-53.0); Hemoglobin 14.1 g/dL (13.5-17.5); Mean Corpuscular HGB 29.3 pg (26.0-34.0); Mean Corpuscular HGB Conc 33.2 g/dL (31.5-36.5); Mean Corpuscular Volume 88 fL (80-100); Mean Platelet Volume 11.4 fL (9.1-12.4); Platelet Count 242 K/mm3 (150-400); RDW Coefficient Variation 14.2 % (11.7-14.2); RDW Standard Deviation 45.7 fL (35.1-46.3); Red Blood Cell Count 4.82 M/mm3 (4.30-5.90); White Blood Cell Count 12.06 K/mm3 (4.00-11.30)
[2021-12-11 20:52] LABS: Albumin, Blood 3.2 g/dL (3.4-5.0); Bilirubin, Total 0.3 mg/dL (0.1-1.0); Bun/Creatinine Ratio 22.9 (12.0-20.0); Calcium, Blood 8.7 mg/dL (8.5-10.1); Creatinine, Blood 1.05 mg/dL (0.60-1.20); Globulin, Blood 3.1 g/dL (2.2-4.0); Potassium, Blood 4.3 mmol/L (3.5-5.5); Total Protein, Blood 6.3 g/dL (6.4-8.2)
[2021-12-11 21:33] LABS: BAND PERCENT MAN 2 % (0-8); BASOPHILS PERCENT MAN 0 % (0-2); EOSINOPHILS PERCENT MAN 0 % (0-6); LYMPHOCYTES % ATYPICAL MANUAL 3 % (0-0); LYMPHOCYTES ABSOLUTE MAN 6.39 K/mm3 (0.84-5.20); LYMPHOCYTES PERCENT MAN 50 % (21-46); MONOCYTES PERCENT MAN 5 % (4-13); NEUTROPHILS ABSOLUTE MAN 5.06 K/mm3 (1.96-9.15); SEG NEUTROPHILS PERCENT MAN 40 % (41-73); TOTAL CELLS COUNTED 100
== END 2021-12-12 01:00 | disposition home or self-care (01) ==
LOC: ER 20:06
PROVIDERS: Student in an Organized Health Care Education/Training Program
DX: R07.89 Other chest pain (principal); E11.9 Type 2 diabetes mellitus without complications; I10 Essential (primary) hypertension; E03.9 Hypothyroidism, unspecified; E78.5 Hyperlipidemia, unspecified; Z79.4 Long term (current) use of insulin; Z79.82 Long term (current) use of aspirin; Z79.899 Other long term (current) drug therapy; Z86.59 Personal history of other mental and behavioral disorders
CPT/HCPCS: 71046; 80053; 84484; 85025; 93005; 93010; 99285-25

== ENCOUNTER 2021-12-22 16:42 | Emergency (ER) | payer OTHER ==
[~2021-12-22] VITALS: Ht 170.2 cm; Wt 80.7 kg
[~2021-12-22 16:42] MED LIST changes: +B-121000 MC3 PO; +CARB200 PO; +ESCI5 PO; -EUTHYROX100 MC1 PO; +EUTHYROX112 MC1 PO; -HUMULIN R100 UNIT/1 SC; +INSULIN AS100 UNIT/8 SC
== END 2021-12-22 17:00 | disposition home or self-care (01) ==
LOC: ER 16:42
DX: E11.649 Type 2 diabetes mellitus with hypoglycemia without coma (principal); I10 Essential (primary) hypertension; Z79.899 Other long term (current) drug therapy; Z79.4 Long term (current) use of insulin
CPT/HCPCS: 82947

== ENCOUNTER 2021-12-24 20:11 | Observation (INO) | payer OTHER ==
[~2021-12-24] VITALS: Ht 167.6 cm; Wt 78.5 kg
[2021-12-24 22:01] LABS: BASOPHILS ABSOLUTE AUTO 0.06 K/mm3 (0.00-0.23); BASOPHILS PERCENT AUTO 1 % (0-2); EOSINOPHILS PERCENT AUTO 2 % (0-6); Hematocrit 47.7 % (37.0-53.0); Hemoglobin 15.1 g/dL (13.5-17.5); IMMATURE GRAN ABSOLUTE AUTO 0.02 K/mm3 (0.00-0.10); IMMATURE GRAN PERCENT AUTO 0 % (0-1); LYMPHOCYTES PERCENT AUTO 25 % (21-46); MONOCYTES ABSOLUTE AUTO 0.97 K/mm3 (0.16-1.47); MONOCYTES PERCENT AUTO 10 % (4-13); Mean Corpuscular HGB 28.9 pg (26.0-34.0); Mean Corpuscular HGB Conc 31.7 g/dL (31.5-36.5); Mean Corpuscular Volume 91 fL (80-100); Mean Platelet Volume 11.8 fL (9.1-12.4); NEUTROPHILS ABSOLUTE AUTO 5.83 K/mm3 (1.96-9.15); NEUTROPHILS PERCENT AUTO 62 % (41-73); Platelet Count 260 K/mm3 (150-400); RDW Coefficient Variation 14.4 % (11.7-14.2); RDW Standard Deviation 48.3 fL (35.1-46.3); Red Blood Cell Count 5.23 M/mm3 (4.30-5.90); White Blood Cell Count 9.48 K/mm3 (4.00-11.30)
[2021-12-24 22:13] LABS: Ethanol (Alcohol), Blood, Med <3 mg/dL; Salicylate 1.8 mg/dL (2.8-20.0)
[2021-12-24 22:18] LABS: Alanine Aminotransfer (ALT/SGP 27 U/L (12-78); Albumin, Blood 3.6 g/dL (3.4-5.0); Albumin/Globulin Ratio 1.2 (0.8-1.8); Alk Phos 176 U/L (50-136); Anion Gap 10 mmol/L (6-16); Aspartate Aminotrans (AST/SGOT 22 U/L (12-37); Bilirubin, Total 0.3 mg/dL (0.1-1.0); Blood Urea Nitrogen 25 mg/dL (8-24); CO2, Blood 26 mmol/L (21-32); Calcium, Blood 9.2 mg/dL (8.5-10.1); Chloride, Blood 99 mmol/L (98-108); Creatinine, Blood 1.39 mg/dL (0.60-1.20); Globulin, Blood 3.1 g/dL (2.2-4.0); Glomerular Filtration Rate 52 (60-); Glucose, Blood 413 mg/dL (70-99); Potassium, Blood 4.5 mmol/L (3.5-5.5); Sodium, Blood 135 mmol/L (136-145); Total Protein, Blood 6.7 g/dL (6.4-8.2)
[2021-12-24 22:19] LABS: Acetaminophen, Random <2.0 ug/mL (10.0-30.0)
[2021-12-24 22:56] LABS: Source, Urine Clean Catch
[2021-12-24 23:06] LABS: Bilirubin, Urine Neg (Neg); Blood, Urine Neg (Neg); Glucose Qualitative, Urine 4+ (Neg); Ketones, Urine Neg (Neg); Leukocyte Esterase, Urine Neg (Neg); Nitrite, Urine Neg (Neg); Protein, Urine Neg (Neg); Specific Gravity, Urine 1.015 (1.003-1.022); Urobilinogen, Urine NORM (Normal)
[2021-12-24 23:10] LABS: Influenza A, PCR NEGATIVE (NEGATIVE); Influenza B, PCR NEGATIVE (NEGATIVE); Resp Syncytial Virus, PCR NEGATIVE (NEGATIVE); SARS-Cov-2 (COVID-19) PCR, MMC NEGATIVE (NEGATIVE)
[2021-12-24 23:17] LABS: Appearance, Urine Clear (Clear); Color, Urine Yellow (P-Yellow)
[2021-12-24 23:29] LABS: U Amphetamine Screen Not Detected; U Barbituate Screen Not Detected; U Benzodiazapine Screen Not Detected; U Buprenorphine Screen Not Detected; U Cannabinoids Screen Not Detected; U Cocaine Screen Not Detected; U Methadone Screen Not Detected; U Methamphetamine Screen Not Detected; U Opiates Screen Not Detected; U Oxycodone Screen Not Detected; U Phencyclidine Screen Not Detected; U Propoxyphene Screen Not Detected
[2021-12-25] MEDS ORDERED: CARB200 PO (02:30)
[2021-12-25] MEDS ORDERED: INSULIN REGULAR (02:34)
[2021-12-25 15:05] LABS: Bun/Creatinine Ratio 19.8 (12.0-20.0); Calcium, Blood 8.8 mg/dL (8.5-10.1); Creatinine, Blood 1.16 mg/dL (0.60-1.20); Potassium, Blood 4.6 mmol/L (3.5-5.5)
== END 2021-12-25 15:45 ==
LOC: ER 20:11 → EOR 20:12
PROVIDERS: ADMIT Student in an Organized Health Care Education/Training Program
DX: F32.9 Major depressive disorder, single episode, unspecified (principal); F43.10 Post-traumatic stress disorder, unspecified; F41.1 Generalized anxiety disorder; R45.851 Suicidal ideations; I10 Essential (primary) hypertension; E11.9 Type 2 diabetes mellitus without complications; E78.5 Hyperlipidemia, unspecified; E03.9 Hypothyroidism, unspecified; Z79.82 Long term (current) use of aspirin; Z79.4 Long term (current) use of insulin; Z79.899 Other long term (current) drug therapy; Z20.822 Contact with and (suspected) exposure to COVID-19
CPT/HCPCS: 0241U; 80048; 80053; 81003; 82947; 85025; 93005; 93010; 99285-25; A9270; G0378; G0480; J1815; Q3014

== ENCOUNTER 2022-04-11 18:40 | Observation (INO) | payer OTHER ==
[~2022-04-11] VITALS: Ht 167.6 cm; Wt 88.0 kg
[~2022-04-11 18:40] MED LIST changes: +INSULIN REGULAR
[2022-04-11 19:43] LABS: BASOPHILS ABSOLUTE AUTO 0.04 K/mm3 (0.00-0.23); BASOPHILS PERCENT AUTO 1 % (0-2); EOSINOPHILS ABSOLUTE AUTO 0.11 K/mm3 (0.00-0.68); EOSINOPHILS PERCENT AUTO 2 % (0-6); Hematocrit 37.9 % (37.0-53.0); Hemoglobin 12.6 g/dL (13.5-17.5); IMMATURE GRAN ABSOLUTE AUTO 0.02 K/mm3 (0.00-0.10); IMMATURE GRAN PERCENT AUTO 0 % (0-1); LYMPHOCYTES ABSOLUTE AUTO 2.02 K/mm3 (0.84-5.20); LYMPHOCYTES PERCENT AUTO 28 % (21-46); MONOCYTES ABSOLUTE AUTO 0.87 K/mm3 (0.16-1.47); MONOCYTES PERCENT AUTO 12 % (4-13); Mean Corpuscular HGB 29.8 pg (26.0-34.0); Mean Corpuscular HGB Conc 33.2 g/dL (31.5-36.5); Mean Corpuscular Volume 90 fL (80-100); Mean Platelet Volume 11.3 fL (9.1-12.4); NEUTROPHILS PERCENT AUTO 58 % (41-73); Platelet Count 185 K/mm3 (150-400); RDW Coefficient Variation 13.3 % (11.7-14.2); RDW Standard Deviation 43.9 fL (35.1-46.3); Red Blood Cell Count 4.23 M/mm3 (4.30-5.90); White Blood Cell Count 7.26 K/mm3 (4.00-11.30)
[2022-04-11 20:06] LABS: Albumin, Blood 3.2 g/dL (3.4-5.0); Albumin/Globulin Ratio 1.3 (0.8-1.8); Bilirubin, Total 0.3 mg/dL (0.1-1.0); Bun/Creatinine Ratio 19.9 (12.0-20.0); Calcium, Blood 8.7 mg/dL (8.5-10.1); Creatinine, Blood 1.46 mg/dL (0.60-1.20); Globulin, Blood 2.5 g/dL (2.2-4.0); Potassium, Blood 4.5 mmol/L (3.5-5.5); Total Protein, Blood 5.7 g/dL (6.4-8.2)
[2022-04-11 20:20] LABS: Influenza A, PCR NEGATIVE (NEGATIVE); Influenza B, PCR NEGATIVE (NEGATIVE); Resp Syncytial Virus, PCR NEGATIVE (NEGATIVE); SARS-Cov-2 (COVID-19) PCR, MMC NEGATIVE (NEGATIVE)
[2022-04-11 23:11] LABS: Source, Urine Clean Catch
[2022-04-11 23:24] LABS: Bilirubin, Urine Neg (Neg); Blood, Urine Neg (Neg); Glucose Qualitative, Urine 4+ (Neg); Ketones, Urine Neg (Neg); Leukocyte Esterase, Urine Neg (Neg); Nitrite, Urine Neg (Neg); Protein, Urine Neg (Neg); Urobilinogen, Urine NORM (Normal)
[2022-04-11 23:33] LABS: Appearance, Urine Clear (Clear); Color, Urine Yellow (P-Yellow)
== END 2022-04-12 15:22 ==
LOC: ER 18:40 → EOR 22:48
PROVIDERS: Emergency Medicine; ADMIT Emergency Medicine
DX: F31.9 Bipolar disorder, unspecified (principal); E11.65 Type 2 diabetes mellitus with hyperglycemia; I10 Essential (primary) hypertension; Z79.4 Long term (current) use of insulin; Z20.822 Contact with and (suspected) exposure to COVID-19
CPT/HCPCS: 0241U; 80053; 81003; 82947; 85025; 93005; 93010; A9270; J1815; J7030

== ENCOUNTER 2022-07-04 11:38 | Inpatient (IN) | payer OTHER ==
[~2022-07-04] VITALS: Ht 167.6 cm; Wt 94.3 kg
[~2022-07-04 11:38] MED LIST changes: +HUMALOG KW100 UNIT/1 SC; -INSULIN REGULAR
[2022-07-04 13:49] LABS: BASOPHILS ABSOLUTE AUTO 0.03 K/mm3 (0.00-0.23); BASOPHILS PERCENT AUTO 0 % (0-2); EOSINOPHILS PERCENT AUTO 0 % (0-6); Hematocrit 41.4 % (37.0-53.0); Hemoglobin 13.2 g/dL (13.5-17.5); IMMATURE GRAN ABSOLUTE AUTO 0.19 K/mm3 (0.00-0.10); IMMATURE GRAN PERCENT AUTO 1 % (0-1); LYMPHOCYTES ABSOLUTE AUTO 0.55 K/mm3 (0.84-5.20); LYMPHOCYTES PERCENT AUTO 4 % (21-46); MONOCYTES ABSOLUTE AUTO 1.04 K/mm3 (0.16-1.47); MONOCYTES PERCENT AUTO 7 % (4-13); Mean Corpuscular HGB 29.2 pg (26.0-34.0); Mean Corpuscular HGB Conc 31.9 g/dL (31.5-36.5); Mean Corpuscular Volume 92 fL (80-100); Mean Platelet Volume 12.5 fL (9.1-12.4); NEUTROPHILS ABSOLUTE AUTO 12.22 K/mm3 (1.96-9.15); NEUTROPHILS PERCENT AUTO 87 % (41-73); Platelet Count 237 K/mm3 (150-400); RDW Coefficient Variation 13.9 % (11.7-14.2); RDW Standard Deviation 46.3 fL (35.1-46.3); Red Blood Cell Count 4.52 M/mm3 (4.30-5.90); White Blood Cell Count 14.03 K/mm3 (4.00-11.30)
[2022-07-04 14:26] LABS: Albumin, Blood 3.6 g/dL (3.4-5.0); Albumin/Globulin Ratio 1.4 (0.8-1.8); Bilirubin, Total 1.1 mg/dL (0.1-1.0); Calcium, Blood 9.3 mg/dL (8.5-10.1); Creatinine, Blood 2.63 mg/dL (0.60-1.20); Globulin, Blood 2.5 g/dL (2.2-4.0); Potassium, Blood 6.8 mmol/L (3.5-5.5); Total Protein, Blood 6.1 g/dL (6.4-8.2)
[2022-07-04 14:57] LABS: Base Excess Venous -25.5 mmol/L; Bicarbonate Venous 8.1 mmol/L (24.0-30.0); PCO2 Venous 17.5 mmHg (38-42); pH Blood Venous 7.06 (7.34-7.37)
[2022-07-04 15:40] LABS: Influenza A, PCR NEGATIVE (NEGATIVE); Influenza B, PCR NEGATIVE (NEGATIVE); Resp Syncytial Virus, PCR NEGATIVE (NEGATIVE); SARS-Cov-2 (COVID-19) PCR, MMC NEGATIVE (NEGATIVE)
[2022-07-04 16:01] LABS: Glucose, Blood 731 mg/dL (70-99)
[2022-07-04 16:44] LABS: Source, Urine Clean Catch
[2022-07-04 16:45] LABS: Calcium, Ionized (POC) 1.17 mmol/L (1.10-1.46); Chloride (POC) 100 mmol/L (98-108); Creatinine (POC) 2.9 mg/dL (0.8-1.3); Glucose (ISTAT POC) 550 mg/dL (70-99); Hemoglobin (POC) 12.6 g/dL (13.5-17.5); Potassium (POC) 4.8 mmol/L (3.5-5.5); Sodium (POC) 129 mmol/L (135-148); Total CO2 (POC) 6 mmol/L (21-32)
[2022-07-04 16:49] LABS: Appearance, Urine Clear (Clear); Bilirubin, Urine Neg (Neg); Blood, Urine Neg (Neg); Color, Urine Yellow (P-Yellow); Glucose Qualitative, Urine 4+ (Neg); Ketones, Urine 2+ (Neg); Leukocyte Esterase, Urine Neg (Neg); Nitrite, Urine Neg (Neg); Protein, Urine 1+ (Neg); Urobilinogen, Urine NORM (Normal)
--- NOTE | 2022-07-04 18:46 | NUR ---
ADMIT PT ARRIVED TO ICU 12 VIA ER BED AT 1815. PT IS DROWSEY, BUT AWAKENS TO VERBAL STIMULI. PT ANSWERS MOST QUESTIONS APPROPRIATELY. PT DENIES PAIN, SOB, OR NAUSEA. CENTRAL LINE TO RIJ IN PLACE WITH LEVOPHED INFUSING AT 20 MCG/MIN AND INSULIN GTT AT 7 UNITS/HR. ALLEN IN PLACE. VITAL SIGNS STABLE, PT ON ROOM AIR. STAT DKA GLUCOSE SENT TO LAB AT THIS TIME. DR JUAN CALLED TO CLAIFY FLUID AND BICARB ORDERS. PT RESTING QUIETLY AT THIS TIME. WILL CONTINUE TO MONITOR AND REPORT OFF TO ONCOMING RN.
[2022-07-04 19:09] LABS: Glucose, Blood 542 mg/dL (70-99)
[2022-07-04 19:33] LABS: Bun/Creatinine Ratio 24.3 (12.0-20.0); Creatinine, Blood 2.8 mg/dL (0.60-1.20)
[2022-07-04 19:34] LABS: Potassium, Blood 4.1 mmol/L (3.5-5.5)
[2022-07-04 20:45] LABS: Source, Urine Foley catheter
[2022-07-04 21:00] LABS: Bilirubin, Urine Neg (Neg); Blood, Urine Neg (Neg); Glucose Qualitative, Urine 4+ (Neg); Ketones, Urine 2+ (Neg); Leukocyte Esterase, Urine Neg (Neg); Nitrite, Urine Neg (Neg); Protein, Urine 1+ (Neg); Specific Gravity, Urine 1.015 (1.003-1.022); Urobilinogen, Urine NORM (Normal)
[2022-07-04 21:22] LABS: Appearance, Urine Clear (Clear); Color, Urine Yellow (P-Yellow)
[2022-07-04 22:23] LABS: Bun/Creatinine Ratio 25.8 (12.0-20.0); Calcium, Blood 7.9 mg/dL (8.5-10.1); Creatinine, Blood 2.48 mg/dL (0.60-1.20); Magnesium, Blood 2.5 mg/dL (1.6-2.4); Potassium, Blood 3.8 mmol/L (3.5-5.5)
[2022-07-05 01:08] LABS: Adenovirus Not Detected (NOT DETECT); Bordetella pertussis Not Detected (NOT DETECT); Chlamydophila pneumoniae Not Detected (NOT DETECT); Coronavirus 229E Not Detected (NOT DETECT); Coronavirus HKU1 Not Detected (NOT DETECT); Coronavirus NL63 Not Detected (NOT DETECT); Coronavirus OC43 Not Detected (NOT DETECT); Human Metapneumovirus Not Detected (NOT DETECT); Human Rhinovirus/Enterovirus Not Detected (NOT DETECT); Influenza A/2009-H1 Not Detected (NOT DETECT); Influenza A/H1 Not Detected (NOT DETECT); Influenza A/H3 Not Detected (NOT DETECT); Influenza B Not Detected (NOT DETECT); Mycoplasma pneumoniae Not Detected (NOT DETECT); Parainfluenza Virus 1 Not Detected (NOT DETECT); Parainfluenza Virus 2 Not Detected (NOT DETECT); Parainfluenza Virus 3 Not Detected (NOT DETECT); Parainfluenza Virus 4 Not Detected (NOT DETECT); Respiratory Syncytial Virus Not Detected (NOT DETECT); SARS-Cov-2 (COVID-19), BioFire Not Detected (NOT DETECT)
[2022-07-05 03:03] LABS: Bun/Creatinine Ratio 26.3 (12.0-20.0); Calcium, Blood 7.8 mg/dL (8.5-10.1); Creatinine, Blood 2.36 mg/dL (0.60-1.20); Magnesium, Blood 2.3 mg/dL (1.6-2.4); Phosphorus, Blood 3.2 mg/dL (2.5-4.9); Potassium, Blood 3.3 mmol/L (3.5-5.5)
--- NOTE | 2022-07-05 05:05 | NUR ---
SHIFT SUMMARY PATIENT SLEPT OFF AND ON T/O SHIFT. CBG IMPROVED AND D5 1/2 NS W/ KCL INF @ 200ML/HR. VASOPRESSIN STARTED AND LEVO TITRATED DOWN. LEVO NOW @ 6 MCG/MIN AND VASOPRESSIN ON SB. CRITICAL LABS OF LACTIC 5.8, IMPROVED TO 4.2, AND CO2 7. 2 ADDITIONAL LITER BOLUSES FOR A TOTAL OF 5L NS BOLUSED THIS ADMISSION. ALLEN PATENT AND DRAINING TO GRAVITY WITH GOOD URINE OUTPUT. ONE INCONTINENT BM THIS SHIFT. CENTRAL LINE DRESSING CHANGED DUE TO BLEEDING UNDERNEATH DRESSING. 2LPM VIA NC REMAINS IN PLACE FOR PATIENT COMFORT-SPO2 100%. NO OTHER CHANGES DURING SHIFT.
[2022-07-05 05:51] LABS: Hematocrit 32.5 % (37.0-53.0); Hemoglobin 11.3 g/dL (13.5-17.5); Mean Corpuscular HGB 29.1 pg (26.0-34.0); Mean Corpuscular HGB Conc 34.8 g/dL (31.5-36.5); Mean Platelet Volume 11.1 fL (9.1-12.4); Platelet Count 200 K/mm3 (150-400); RDW Coefficient Variation 13.7 % (11.7-14.2); RDW Standard Deviation 41.1 fL (35.1-46.3); Red Blood Cell Count 3.88 M/mm3 (4.30-5.90); White Blood Cell Count 11.77 K/mm3 (4.00-11.30)
[2022-07-05 06:18] LABS: Magnesium, Blood 2.3 mg/dL (1.6-2.4)
[2022-07-05 06:19] LABS: Beta-hydroxybutyrate 0.7 mg/dL (0.2-2.8); Bun/Creatinine Ratio 25.8 (12.0-20.0); Calcium, Blood 7.8 mg/dL (8.5-10.1); Creatinine, Blood 2.25 mg/dL (0.60-1.20); Phosphorus, Blood 3.3 mg/dL (2.5-4.9); Potassium, Blood 3.4 mmol/L (3.5-5.5)
[2022-07-05 06:22] LABS: Mean Corpuscular Volume 84 fL (80-100)
--- NOTE | 2022-07-05 07:29 | NUR ---
Assumed care for pt at 0700. Currently on insulin gtt @ 2 units/hr, levophed gtt @ 6 mcg/min, Vasopressin gtt 0.04 units/min, and 20 mEq K+ in D5 1/2 NS @ 200 ml/hr. R IJ Central line, ugalde cath in place. A&Ox4, resting comfortably in bed. BGL check q1hr while on insulin gtt.
--- NOTE | 2022-07-05 07:52 | NUR ---
BL 111, adjusted insulin gtt to 1.5 units/hr, Francisca LADD verified.
--- NOTE | 2022-07-05 09:50 | NUR ---
Insulin gtt stopped, BGL 102 and it has been 1 hour since Glargine was administered.
--- NOTE | 2022-07-05 19:00 | NUR ---
Insulin gtt stopped this morning, 1 hour after starting Glargine. Vasopressin gtt stopped this early afternoon and Levophed gtt stopped around 1800 during dinner. Mentation and color have improved throughout the shift. Snyder cath remains in place w/ 700 ml urine output today. R IJ remains in place, Dr. Estrada is aware it is slowly bleeding, dressing last changed at 0600 this morning.
--- NOTE | 2022-07-06 06:22 | NUR ---
PATIENT AOX4. SR AND STABLE BP OVERNIGHT. ROOM AIR AND CLEAR LUNG SOUNDS. ALLEN IN PLACE AND PATENT. CONTINUING TO MONITOR BG.
[2022-07-06 08:21] LABS: BASOPHILS ABSOLUTE AUTO 0.01 K/mm3 (0.00-0.23); BASOPHILS PERCENT AUTO 0 % (0-2); EOSINOPHILS ABSOLUTE AUTO 0.03 K/mm3 (0.00-0.68); EOSINOPHILS PERCENT AUTO 0 % (0-6); Hematocrit 33.6 % (37.0-53.0); Hemoglobin 11.4 g/dL (13.5-17.5); IMMATURE GRAN ABSOLUTE AUTO 0.03 K/mm3 (0.00-0.10); IMMATURE GRAN PERCENT AUTO 0 % (0-1); LYMPHOCYTES ABSOLUTE AUTO 1.31 K/mm3 (0.84-5.20); LYMPHOCYTES PERCENT AUTO 13 % (21-46); MONOCYTES ABSOLUTE AUTO 0.69 K/mm3 (0.16-1.47); MONOCYTES PERCENT AUTO 7 % (4-13); Mean Corpuscular HGB 29.4 pg (26.0-34.0); Mean Corpuscular HGB Conc 33.9 g/dL (31.5-36.5); Mean Corpuscular Volume 87 fL (80-100); Mean Platelet Volume 10.7 fL (9.1-12.4); NEUTROPHILS ABSOLUTE AUTO 8.26 K/mm3 (1.96-9.15); NEUTROPHILS PERCENT AUTO 80 % (41-73); Platelet Count 144 K/mm3 (150-400); RDW Coefficient Variation 14.8 % (11.7-14.2); RDW Standard Deviation 46.4 fL (35.1-46.3); Red Blood Cell Count 3.88 M/mm3 (4.30-5.90); White Blood Cell Count 10.33 K/mm3 (4.00-11.30)
[2022-07-06 08:37] LABS: Bun/Creatinine Ratio 28.6 (12.0-20.0); Calcium, Blood 8.3 mg/dL (8.5-10.1); Creatinine, Blood 1.47 mg/dL (0.60-1.20); Magnesium, Blood 2.5 mg/dL (1.6-2.4); Phosphorus, Blood 2.5 mg/dL (2.5-4.9); Potassium, Blood 4.3 mmol/L (3.5-5.5)
--- NOTE | 2022-07-06 17:53 | NUR ---
Iv fluids stopped around noon today and ugalde catheter removed at the same time. Pt able to urinate once he sat on the bedside commode and was not retaining urine this afternoon w/ only 39 ml in his bladder post-void. PT worked w/ pt today and ambulated him ni the hallway, they recommended Home Health. Increased his sliding scale coverage from low to medium, first dose was this evening prior to dinner. R IJ remains in place. Possible discharge tomorrow.
[2022-07-07 03:57] LABS: Albumin, Blood 2.3 g/dL (3.4-5.0); Anion Gap 4 mmol/L (6-16); Blood Urea Nitrogen 35 mg/dL (8-24); Bun/Creatinine Ratio 29.9 (12.0-20.0); CO2, Blood 24 mmol/L (21-32); Calcium, Blood 8.3 mg/dL (8.5-10.1); Chloride, Blood 111 mmol/L (98-108); Creatinine, Blood 1.17 mg/dL (0.60-1.20); Glomerular Filtration Rate 64 (60-); Glucose, Blood 119 mg/dL (70-99); Phosphorus, Blood 1.7 mg/dL (2.5-4.9); Potassium, Blood 3.7 mmol/L (3.5-5.5); Sodium, Blood 139 mmol/L (136-145)
--- NOTE | 2022-07-07 06:06 | NUR ---
SHIFT SUMMERY NO ACUTE CHANGES OVERNIGHT. VSS.
[2022-07-07] MEDS ORDERED: RISP1 PO (10:14)
--- NOTE | 2022-07-07 10:52 | NUR ---
DISCHARGE: Pt discharged home to home health with his . He was provided with discharge teaching and return precautions. He verbalized understanding and agreement. IV was removed. Pt wheeled out in wheelchair to private vehicle via [employer].
== END 2022-07-07 10:57 | disposition home health service (06) | DRG 637 ==
LOC: ER 11:38 → ICUW 17:56
PROVIDERS: Internal Medicine; Student in an Organized Health Care Education/Training Program; ADMIT Internal Medicine
PROC: 02H633Z Insertion of Infusion Device into Right Atrium, Percutaneous Approach (ICD-10-PCS; principal; 2022-07-04)
PROC: 3E033XZ Introduction of Vasopressor into Peripheral Vein, Percutaneous Approach (ICD-10-PCS; 2022-07-04)
DX: E11.10 Type 2 diabetes mellitus with ketoacidosis without coma (principal); R57.1 Hypovolemic shock; N17.9 Acute kidney failure, unspecified; Z20.822 Contact with and (suspected) exposure to COVID-19; I12.9 Hypertensive chronic kidney disease with stage 1 through stage 4 chronic kidney disease, or unspecified chronic kidney disease; N18.30 Chronic kidney disease, stage 3 unspecified; E11.22 Type 2 diabetes mellitus with diabetic chronic kidney disease; F43.10 Post-traumatic stress disorder, unspecified; F32.A Depression, unspecified; E87.6 Hypokalemia; G25.0 Essential tremor; E86.0 Dehydration; E83.51 Hypocalcemia; Z98.890 Other specified postprocedural states; Z79.4 Long term (current) use of insulin; Z79.899 Other long term (current) drug therapy
CPT/HCPCS: 0202U; 0241U; 36415; 36556; 51702; 71045; 80047; 80048; 80053; 80069; 82010; 82330; 82435; 82803; 82947; 83036; 83605; 83735; 84100; 84132; 84145; 84295; 85014; 85025; 85027; 87040; 93005; 93010; 94644; 94664; 96365-59; 96366-59; 96368; 96375-59; 97112; 97116; 97162; 99291-25; A9270; C1751; J0610; J1644; J1815; J2543; J3480; J7030; J7050; J7060

== ENCOUNTER 2022-09-03 16:07 | Emergency (ER) | payer OTHER ==
[~2022-09-03] VITALS: Ht 167.6 cm; Wt 73.5 kg
[~2022-09-03 16:07] MED LIST changes: +RISP1 PO
[2022-09-03 16:39] LABS: BASOPHILS ABSOLUTE AUTO 0.04 K/mm3 (0.00-0.23); BASOPHILS PERCENT AUTO 1 % (0-2); EOSINOPHILS PERCENT AUTO 1 % (0-6); Hematocrit 37.9 % (37.0-53.0); Hemoglobin 12.4 g/dL (13.5-17.5); IMMATURE GRAN ABSOLUTE AUTO 0.05 K/mm3 (0.00-0.10); IMMATURE GRAN PERCENT AUTO 1 % (0-1); LYMPHOCYTES ABSOLUTE AUTO 1.62 K/mm3 (0.84-5.20); LYMPHOCYTES PERCENT AUTO 21 % (21-46); MONOCYTES ABSOLUTE AUTO 0.72 K/mm3 (0.16-1.47); MONOCYTES PERCENT AUTO 9 % (4-13); Mean Corpuscular HGB Conc 32.7 g/dL (31.5-36.5); Mean Corpuscular Volume 89 fL (80-100); Mean Platelet Volume 10.9 fL (9.1-12.4); NEUTROPHILS ABSOLUTE AUTO 5.38 K/mm3 (1.96-9.15); NEUTROPHILS PERCENT AUTO 68 % (41-73); Platelet Count 217 K/mm3 (150-400); RDW Coefficient Variation 14.8 % (11.7-14.2); RDW Standard Deviation 47.9 fL (35.1-46.3); Red Blood Cell Count 4.28 M/mm3 (4.30-5.90); White Blood Cell Count 7.91 K/mm3 (4.00-11.30)
[2022-09-03 17:11] LABS: Albumin, Blood 2.8 g/dL (3.4-5.0); Bilirubin, Total 0.5 mg/dL (0.1-1.0); Bun/Creatinine Ratio 17.1 (12.0-20.0); Calcium, Blood 8.2 mg/dL (8.5-10.1); Creatinine, Blood 0.94 mg/dL (0.60-1.20); Globulin, Blood 2.8 g/dL (2.2-4.0); Potassium, Blood 3.5 mmol/L (3.5-5.5); Total Protein, Blood 5.6 g/dL (6.4-8.2)
[2022-09-03] MEDS ORDERED: OXYC5 PO (19:43)
== END 2022-09-03 19:47 | disposition home or self-care (01) ==
LOC: ER 16:07
PROVIDERS: Emergency Medicine
DX: S32.041A Stable burst fracture of fourth lumbar vertebra, initial encounter for closed fracture (principal); W19.XXXA Unspecified fall, initial encounter; Z79.4 Long term (current) use of insulin; Z79.899 Other long term (current) drug therapy; Z79.890 Hormone replacement therapy
CPT/HCPCS: 72100; 80053; 85025; 93005; 93010; 99284-25; A9270

== ENCOUNTER 2022-09-06 09:23 | Emergency (ER) | payer OTHER ==
[~2022-09-06] VITALS: Ht 167.6 cm; Wt 74.8 kg
[~2022-09-06 09:23] MED LIST changes: +OXYC5 PO
[2022-09-06] MEDS ORDERED: VOLTAREN ARTHRI20 GM EXT (09:32)
[2022-09-06] MEDS ORDERED: LIDO5TO TOP (09:33)
[2022-09-06 10:40] LABS: BASOPHILS ABSOLUTE AUTO 0.05 K/mm3 (0.00-0.23); BASOPHILS PERCENT AUTO 1 % (0-2); EOSINOPHILS ABSOLUTE AUTO 0.09 K/mm3 (0.00-0.68); EOSINOPHILS PERCENT AUTO 1 % (0-6); Hematocrit 37.3 % (37.0-53.0); Hemoglobin 12.5 g/dL (13.5-17.5); IMMATURE GRAN ABSOLUTE AUTO 0.03 K/mm3 (0.00-0.10); IMMATURE GRAN PERCENT AUTO 0 % (0-1); LYMPHOCYTES ABSOLUTE AUTO 1.42 K/mm3 (0.84-5.20); LYMPHOCYTES PERCENT AUTO 17 % (21-46); MONOCYTES ABSOLUTE AUTO 0.73 K/mm3 (0.16-1.47); MONOCYTES PERCENT AUTO 9 % (4-13); Mean Corpuscular HGB 29.3 pg (26.0-34.0); Mean Corpuscular HGB Conc 33.5 g/dL (31.5-36.5); Mean Corpuscular Volume 87 fL (80-100); Mean Platelet Volume 10.6 fL (9.1-12.4); NEUTROPHILS ABSOLUTE AUTO 6.12 K/mm3 (1.96-9.15); NEUTROPHILS PERCENT AUTO 73 % (41-73); Platelet Count 299 K/mm3 (150-400); RDW Coefficient Variation 14.9 % (11.7-14.2); RDW Standard Deviation 47.5 fL (35.1-46.3); Red Blood Cell Count 4.27 M/mm3 (4.30-5.90); White Blood Cell Count 8.44 K/mm3 (4.00-11.30)
[2022-09-06 11:01] LABS: Albumin, Blood 2.8 g/dL (3.4-5.0); Albumin/Globulin Ratio 1.1 (0.8-1.8); Bilirubin, Total 0.5 mg/dL (0.1-1.0); Bun/Creatinine Ratio 14.6 (12.0-20.0); Calcium, Blood 8.6 mg/dL (8.5-10.1); Creatinine, Blood 0.96 mg/dL (0.60-1.20); Globulin, Blood 2.6 g/dL (2.2-4.0); Potassium, Blood 3.2 mmol/L (3.5-5.5); Total Protein, Blood 5.4 g/dL (6.4-8.2)
[2022-09-06 11:24] LABS: Influenza A, PCR NEGATIVE (NEGATIVE); Influenza B, PCR NEGATIVE (NEGATIVE); Resp Syncytial Virus, PCR NEGATIVE (NEGATIVE); SARS-Cov-2 (COVID-19) PCR, MMC NEGATIVE (NEGATIVE)
[2022-09-06] MEDS ORDERED: Miralax17 GM PO (12:21)
[2022-09-06] MEDS ORDERED: Roxicodone5 MG PO (12:21)
== END 2022-09-06 13:20 | disposition home or self-care (01) ==
LOC: ER 09:23
PROVIDERS: Emergency Medicine
DX: S32.049A Unspecified fracture of fourth lumbar vertebra, initial encounter for closed fracture (principal); E11.9 Type 2 diabetes mellitus without complications; I10 Essential (primary) hypertension; R53.1 Weakness; M54.41 Lumbago with sciatica, right side; W19.XXXA Unspecified fall, initial encounter; Z88.8 Allergy status to other drugs, medicaments and biological substances; Z79.4 Long term (current) use of insulin; Z79.890 Hormone replacement therapy; Z20.822 Contact with and (suspected) exposure to COVID-19
CPT/HCPCS: 0241U; 72131; 80053; 85025; 93005; 93010; A9270

== ENCOUNTER 2022-09-11 15:19 | Emergency (ER) | payer OTHER ==
[~2022-09-11] VITALS: Ht 167.6 cm; Wt 73.5 kg
[~2022-09-11 15:19] MED LIST changes: +LIDO5TO TOP; +Miralax17 GM PO; +Roxicodone5 MG PO; +VOLTAREN ARTHRI20 GM EXT
== END 2022-09-11 17:38 | disposition home or self-care (01) ==
LOC: ER 15:19
DX: E11.65 Type 2 diabetes mellitus with hyperglycemia (principal); Z88.8 Allergy status to other drugs, medicaments and biological substances; Z79.899 Other long term (current) drug therapy; Z79.4 Long term (current) use of insulin; F43.10 Post-traumatic stress disorder, unspecified; I10 Essential (primary) hypertension
CPT/HCPCS: 82947

== ENCOUNTER 2022-09-16 11:07 | Inpatient (IN) | payer OTHER ==
[~2022-09-16] VITALS: Ht 167.6 cm; Wt 72.4 kg
[2022-09-16 12:52] LABS: BASOPHILS ABSOLUTE AUTO 0.03 K/mm3 (0.00-0.23); BASOPHILS PERCENT AUTO 0 % (0-2); EOSINOPHILS ABSOLUTE AUTO 0.01 K/mm3 (0.00-0.68); EOSINOPHILS PERCENT AUTO 0 % (0-6); Hematocrit 39.2 % (37.0-53.0); Hemoglobin 12.7 g/dL (13.5-17.5); IMMATURE GRAN ABSOLUTE AUTO 0.14 K/mm3 (0.00-0.10); IMMATURE GRAN PERCENT AUTO 1 % (0-1); LYMPHOCYTES PERCENT AUTO 6 % (21-46); MONOCYTES ABSOLUTE AUTO 0.91 K/mm3 (0.16-1.47); MONOCYTES PERCENT AUTO 9 % (4-13); Mean Corpuscular HGB 29.5 pg (26.0-34.0); Mean Corpuscular HGB Conc 32.4 g/dL (31.5-36.5); Mean Corpuscular Volume 91 fL (80-100); Mean Platelet Volume 11.7 fL (9.1-12.4); NEUTROPHILS ABSOLUTE AUTO 8.62 K/mm3 (1.96-9.15); NEUTROPHILS PERCENT AUTO 84 % (41-73); Platelet Count 257 K/mm3 (150-400); RDW Coefficient Variation 14.9 % (11.7-14.2); RDW Standard Deviation 49.8 fL (35.1-46.3); Red Blood Cell Count 4.31 M/mm3 (4.30-5.90); White Blood Cell Count 10.31 K/mm3 (4.00-11.30)
[2022-09-16 13:04] LABS: Albumin, Blood 2.9 g/dL (3.4-5.0); Bilirubin, Total 0.7 mg/dL (0.1-1.0); Bun/Creatinine Ratio 20.5 (12.0-20.0); Calcium, Blood 8.6 mg/dL (8.5-10.1); Creatinine, Blood 1.51 mg/dL (0.60-1.20); Globulin, Blood 2.9 g/dL (2.2-4.0); Total Protein, Blood 5.8 g/dL (6.4-8.2)
[2022-09-16 13:29] LABS: Base Excess Venous -3.1 mmol/L; Bicarbonate Venous 21.9 mmol/L (24.0-30.0); PCO2 Venous 38.7 mmHg (38-42); pH Blood Venous 7.37 (7.34-7.37)
[2022-09-16] MEDS ORDERED: MULVITA PO (15:33)
[2022-09-16] MEDS ORDERED: MEMA5TAB PO (15:33)
--- NOTE | 2022-09-16 17:25 | NUR ---
ASSUMPTION OF CARE PT TRANFERRED TO ICU ROOM BED 3 VIA SLIDER SHEET. PT A&OX4, FOLLOWING COMMANDS, SAMANO. ADMITS TO INTERMITTENT CONFUSION AND DEMENTIA, CURRENTLY APPROPRIATE. USING CALL LIGHT, VERBALIZING NEEDS. DENIES N/V. C/O MODERATE PAIN IN LOWER BACK FROM PREVIOUS FALL AND L4 COMPRESSION FX, NOT REQUESTING MEDS AT THIS TIME. INSULIN GTT INFUSING @ 5U/HR, NOW @ 3.5U/HR. CBG'S Q1HR. 1/2 NS c 20MEQ KCL INFUSING @ 250ML/HR. WILL MONITOR CLOSELY.
[2022-09-16 17:27] LABS: Calcium, Blood 8.6 mg/dL (8.5-10.1); Creatinine, Blood 1.5 mg/dL (0.60-1.20); Potassium, Blood 3.5 mmol/L (3.5-5.5)
[2022-09-16 22:28] LABS: Bun/Creatinine Ratio 22.4 (12.0-20.0); Calcium, Blood 8.7 mg/dL (8.5-10.1); Creatinine, Blood 1.47 mg/dL (0.60-1.20); Potassium, Blood 3.4 mmol/L (3.5-5.5)
[2022-09-17 04:05] LABS: BASOPHILS ABSOLUTE AUTO 0.05 K/mm3 (0.00-0.23); BASOPHILS PERCENT AUTO 0 % (0-2); EOSINOPHILS ABSOLUTE AUTO 0.25 K/mm3 (0.00-0.68); EOSINOPHILS PERCENT AUTO 2 % (0-6); Hematocrit 34.3 % (37.0-53.0); Hemoglobin 11.8 g/dL (13.5-17.5); IMMATURE GRAN ABSOLUTE AUTO 0.05 K/mm3 (0.00-0.10); IMMATURE GRAN PERCENT AUTO 0 % (0-1); LYMPHOCYTES ABSOLUTE AUTO 2.36 K/mm3 (0.84-5.20); LYMPHOCYTES PERCENT AUTO 20 % (21-46); MONOCYTES ABSOLUTE AUTO 0.96 K/mm3 (0.16-1.47); MONOCYTES PERCENT AUTO 8 % (4-13); Mean Corpuscular HGB 29.7 pg (26.0-34.0); Mean Corpuscular HGB Conc 34.4 g/dL (31.5-36.5); Mean Platelet Volume 10.8 fL (9.1-12.4); NEUTROPHILS ABSOLUTE AUTO 8.38 K/mm3 (1.96-9.15); NEUTROPHILS PERCENT AUTO 70 % (41-73); Platelet Count 228 K/mm3 (150-400); RDW Standard Deviation 47.3 fL (35.1-46.3); Red Blood Cell Count 3.97 M/mm3 (4.30-5.90); White Blood Cell Count 12.05 K/mm3 (4.00-11.30)
[2022-09-17 04:42] LABS: Bun/Creatinine Ratio 24.6 (12.0-20.0); Calcium, Blood 8.4 mg/dL (8.5-10.1); Creatinine, Blood 1.26 mg/dL (0.60-1.20); Potassium, Blood 3.4 mmol/L (3.5-5.5)
[2022-09-17 05:09] LABS: Mean Corpuscular Volume 86 fL (80-100)
--- NOTE | 2022-09-17 06:12 | NUR ---
PATIENT AOX4 AND FOLLOWS COMMANDS. SR WITH STABLE BP. ROOM AIR. INSULIN GTT TURNED OFF AT 2230 AND BG CHECKS CHANGED TO Q4. TOLERATING DIET. VOIDING IN URINAL.
--- NOTE | 2022-09-17 14:33 | NUR ---
ASSUMED CARE OF PATIENT UPON HIS ARRIVAL VIA W/C FROM ICU 3 AT 1418. A&O X 3, PLEASANT WITH FLAT AFFFECT. HRR, LUNG SOUNDS DIMINISHED THROUGHOUT. C/O PAIN IN LOW BACK AND RLE; MEDICATED WITH OXYCODONE. SKIN INTACT WITH THE EXCEPTION OF LACERATION ON OCCIPUT (APPROX WITH 4 DIMITRIOS) AND A SKIN TEAR ON DORSUM OF R HAND (COVERED WITH TELFA GAUZE). OPTED TO GO TO BED RATHER THAN CHAIR. CALL LIGHT IN REACH, BED ALARM ON, ALL BELONGINGS IN REACH.
--- NOTE | 2022-09-17 17:37 | NUR ---
SHIFT SUMMARY: NO ACUTE EVENTS SINCE TRANSFER. PAIN MEDICATION ALLOWED PT TO NAP FOR ABOUT AN HOUR BEFORE HE RECIEVED PHONE CALL, STATED PAIN IS CONTROLLED AT THIS TIME. DEFERRED GETTING IN TO CHAIR FOR DINNER.
[2022-09-18 06:48] LABS: Bun/Creatinine Ratio 23.1 (12.0-20.0); Calcium, Blood 8.6 mg/dL (8.5-10.1); Creatinine, Blood 0.95 mg/dL (0.60-1.20); Potassium, Blood 3.8 mmol/L (3.5-5.5)
[2022-09-18 09:27] LABS: BASOPHILS ABSOLUTE AUTO 0.05 K/mm3 (0.00-0.23); BASOPHILS PERCENT AUTO 1 % (0-2); EOSINOPHILS PERCENT AUTO 2 % (0-6); Hematocrit 38.5 % (37.0-53.0); Hemoglobin 12.7 g/dL (13.5-17.5); IMMATURE GRAN ABSOLUTE AUTO 0.05 K/mm3 (0.00-0.10); IMMATURE GRAN PERCENT AUTO 1 % (0-1); LYMPHOCYTES ABSOLUTE AUTO 3.05 K/mm3 (0.84-5.20); LYMPHOCYTES PERCENT AUTO 31 % (21-46); MONOCYTES ABSOLUTE AUTO 0.65 K/mm3 (0.16-1.47); MONOCYTES PERCENT AUTO 7 % (4-13); Mean Corpuscular HGB 29.1 pg (26.0-34.0); Mean Corpuscular Volume 88 fL (80-100); Mean Platelet Volume 11.3 fL (9.1-12.4); NEUTROPHILS ABSOLUTE AUTO 5.74 K/mm3 (1.96-9.15); NEUTROPHILS PERCENT AUTO 59 % (41-73); Platelet Count 229 K/mm3 (150-400); RDW Standard Deviation 48.2 fL (35.1-46.3); Red Blood Cell Count 4.36 M/mm3 (4.30-5.90); White Blood Cell Count 9.74 K/mm3 (4.00-11.30)
--- NOTE | 2022-09-18 17:15 | NUR ---
SHIFT SUMMARY NO ACUTE CHANGES THIS SHIFT, PT AOX4 AND A 1 ASSIST WITH THE GB AND FWW. THE PLAN WAS FOR HIM TO GO HOME TODAY BUT HIS NOON BLOOD SUGAR WAS 366. PROVIDER NOTIFIED AND DECIDED TO KEEP HIM ON MORE DAY UNTIL THOSE STABILIZE. PT ALSO RECIEVED AN X-RAY OF HIS R HIP AFTER C/O R LEG PAIN. NO FX'S WERE NOTED. PT SEEMS FINE WITH STAYING ANOTHER NIGHT. HE C/O THAT R LEG PAIN THIS AM AND WAS MEDICATED PER THE EMAR. HE HAS HAD NO COMPLAINTS SINCE. HE DOES NOT HAVE AN IV PLACED BUT THE PROVIDER SAID THAT WAS OKAY. BED IN THE LOWEST POSITION AND CALL LIGHT WITHIN REACH. WILL REPORT TO THE ONCOMING NURSE.
--- NOTE | 2022-09-19 04:14 | NUR ---
SHIFT SUMMARY PATIENT HAD NO ACUTE CHANGES. AXO X4 AND ONE ASSIST W/FWW GB TO BSC. USES URINAL AT BEDSIDE. REPORTED RIGHT LEG PAIN X ONE AND OXYCODONE 10 MG GIVEN PER EMAR. VSS/AFEBRILE. DENIES CHEST PAIN, SOB, AND N/V. PIV REMAINS INTACT. CBG 135. CALL LIGHT IN REACH. BED IN LOWEST POSITION. WILL CONTINUE TO MONITOR UNTIL DAY SHIFT NURSE ASSUMES CARE.
--- NOTE | 2022-09-19 12:22 | NUR ---
DISCHARGE SUMMARY PATIENT IS ALERT AND ORIENTED X2. PATIENT HAS HAD NO ACUTE EVENTS THIS SHIFT. VITAL SIGNS REVIEWED. [facility] IS BEING DISCHARGED HOME WITH HOME HEALTH WITH TRANSPORTING PATIENT. PATIENT AND HAVE BEEN READ DISCHARGE INSTRUCTIONS AND MEDICATIONS FAXED TO PATIENTS PHARMACY.
[2022-09-20] MEDS ORDERED: Prinivil10 MG PO (15:18)
== END 2022-09-19 12:50 | disposition home health service (06) | DRG 638 ==
LOC: ER 11:07 → ICUW 14:11 → MEDS 14:11 → ICUE 15:24 → MEDS 09-17 14:16
PROVIDERS: Emergency Medicine; Family Medicine; Internal Medicine; ADMIT Internal Medicine
DX: E10.10 Type 1 diabetes mellitus with ketoacidosis without coma (principal); N17.9 Acute kidney failure, unspecified; G89.29 Other chronic pain; F03.90 Unspecified dementia, unspecified severity, without behavioral disturbance, psychotic disturbance, mood disturbance, and anxiety; E78.5 Hyperlipidemia, unspecified; E87.6 Hypokalemia; E03.9 Hypothyroidism, unspecified; M25.551 Pain in right hip; I10 Essential (primary) hypertension; R29.6 Repeated falls; F43.10 Post-traumatic stress disorder, unspecified; F31.9 Bipolar disorder, unspecified; E86.0 Dehydration; W18.30XA Fall on same level, unspecified, initial encounter; Z88.8 Allergy status to other drugs, medicaments and biological substances; Z91.041 Radiographic dye allergy status; Z79.899 Other long term (current) drug therapy; Z79.02 Long term (current) use of antithrombotics/antiplatelets; Z79.4 Long term (current) use of insulin; Z79.891 Long term (current) use of opiate analgesic
CPT/HCPCS: 36415; 71045; 72100; 73502; 80048; 80053; 82803; 82947; 84484; 85025; 93005; 93010; 96361; 96374; 97110; 97116; 97162; 99285-25; A9270; J1650; J1815; J3480; J7030

== ENCOUNTER 2022-09-19 18:31 | Observation (INO) | payer OTHER ==
[~2022-09-19] VITALS: Ht 167.6 cm; Wt 73.5 kg
[~2022-09-19 18:31] MED LIST changes: +MEMA5TAB PO; +MULVITA PO
[2022-09-20 00:34] LABS: BASOPHILS ABSOLUTE AUTO 0.02 K/mm3 (0.00-0.23); BASOPHILS PERCENT AUTO 0 % (0-2); EOSINOPHILS ABSOLUTE AUTO 0.04 K/mm3 (0.00-0.68); EOSINOPHILS PERCENT AUTO 1 % (0-6); Hematocrit 38.7 % (37.0-53.0); Hemoglobin 12.9 g/dL (13.5-17.5); IMMATURE GRAN ABSOLUTE AUTO 0.03 K/mm3 (0.00-0.10); IMMATURE GRAN PERCENT AUTO 1 % (0-1); LYMPHOCYTES ABSOLUTE AUTO 1.18 K/mm3 (0.84-5.20); LYMPHOCYTES PERCENT AUTO 19 % (21-46); MONOCYTES ABSOLUTE AUTO 0.45 K/mm3 (0.16-1.47); MONOCYTES PERCENT AUTO 7 % (4-13); Mean Corpuscular HGB 29.1 pg (26.0-34.0); Mean Corpuscular HGB Conc 33.3 g/dL (31.5-36.5); Mean Corpuscular Volume 87 fL (80-100); Mean Platelet Volume 11.1 fL (9.1-12.4); NEUTROPHILS ABSOLUTE AUTO 4.61 K/mm3 (1.96-9.15); NEUTROPHILS PERCENT AUTO 73 % (41-73); Platelet Count 201 K/mm3 (150-400); RDW Coefficient Variation 14.9 % (11.7-14.2); Red Blood Cell Count 4.43 M/mm3 (4.30-5.90); White Blood Cell Count 6.33 K/mm3 (4.00-11.30)
[2022-09-20 00:53] LABS: Acetaminophen, Random <2.0 ug/mL (10.0-30.0); Alanine Aminotransfer (ALT/SGP 22 U/L (12-78); Albumin, Blood 2.8 g/dL (3.4-5.0); Alk Phos 169 U/L (50-136); Anion Gap 5 mmol/L (6-16); Aspartate Aminotrans (AST/SGOT 20 U/L (12-37); Bilirubin, Total 0.8 mg/dL (0.1-1.0); Blood Urea Nitrogen 20 mg/dL (8-24); Bun/Creatinine Ratio 19.2 (12.0-20.0); CO2, Blood 27 mmol/L (21-32); Calcium, Blood 8.7 mg/dL (8.5-10.1); Chloride, Blood 100 mmol/L (98-108); Creatinine, Blood 1.04 mg/dL (0.60-1.20); Ethanol (Alcohol), Blood, Med <3 mg/dL; Globulin, Blood 2.9 g/dL (2.2-4.0); Glomerular Filtration Rate 73 (60-); Glucose, Blood 309 mg/dL (70-99); Potassium, Blood 4.4 mmol/L (3.5-5.5); Salicylate <1.7 mg/dL (2.8-20.0); Sodium, Blood 132 mmol/L (136-145); Total Protein, Blood 5.7 g/dL (6.4-8.2)
[2022-09-20 01:13] LABS: Influenza A, PCR NEGATIVE (NEGATIVE); Influenza B, PCR NEGATIVE (NEGATIVE); Resp Syncytial Virus, PCR NEGATIVE (NEGATIVE); SARS-Cov-2 (COVID-19) PCR, MMC NEGATIVE (NEGATIVE)
[2022-09-20 02:00] LABS: Source, Urine Clean Catch
[2022-09-20 02:37] LABS: Bilirubin, Urine Neg (Neg); Blood, Urine 1+ (Neg); Glucose Qualitative, Urine 4+ (Neg); Ketones, Urine 3+ (Neg); Leukocyte Esterase, Urine 1+ (Neg); Nitrite, Urine Neg (Neg); Protein, Urine 1+ (Neg); Specific Gravity, Urine 1.015 (1.003-1.022); Urobilinogen, Urine NORM (Normal)
[2022-09-20 02:49] LABS: Appearance, Urine Hazy (Clear); Color, Urine Yellow (P-Yellow); Red Blood Cells, Urine 0-2 /hpf (0-2)
[2022-09-20 02:50] LABS: Bacteria Few /hpf; Squamous Epithelial Cells Rare /hpf (Few); U Amphetamine Screen Not Detected; U Methamphetamine Screen Not Detected; Yeast/Fungi Urine Mod /hpf
[2022-09-20 02:51] LABS: U Barbituate Screen Not Detected; U Benzodiazapine Screen Not Detected; U Buprenorphine Screen Not Detected; U Cannabinoids Screen Not Detected; U Cocaine Screen Not Detected; U Methadone Screen Not Detected; U Opiates Screen Not Detected; U Oxycodone Screen DETECTED; U Phencyclidine Screen Not Detected; U Propoxyphene Screen Not Detected
--- NOTE | 2022-09-20 04:22 | NUR ---
ADMIT NOTE HANDOFF RECEIVED FROM CEMENT DESPATCH OPERATOR SHARON. PT ARRIVED TO UNIT VIA WHEELCHAIR. ROOM PREPARED FOR HIGH SI SAFETY PREVIOUS TO PT'S ARRIVAL. 1:[address] PT IS RESTING COMFORTABLY AND WATCHING TV
--- NOTE | 2022-09-20 07:47 | NUR ---
MD CALL BP ELEVATED. DR BELTRAN INFORMED. ADDRESSING. ALSO RECEIVED TELEPHONE ORDER FOR NO IV AND MAY REMOVE DIMITRIOS.
--- NOTE | 2022-09-20 10:41 | NUR ---
RN NOTE PT SEEN BY DR BELTRAN AND DR NEUMANN THIS MORNING. SUICIDE ASSESSMENT CHANGED TO LOW RISK PER DR NEUMANN. AWAITING TELE-PSYCH CONSULT. PT SAID HE WOULD HAVE TAKEN AN OVERDOSE OF MEDICATIONS YESTERDAY, BUT THAT HE HAS NO ACCESS TO HIS MEDS HIS KEEPS THEM LOCKED UP. HE SAID HE HAS NO PLANS FOR SUICIDE TODAY. SITTER DISCONTINUED PER DR NEUMANN, CAMERA MONITOR AND BED ALARM ON. HE DOES NOT REMEMBER THE REASON FOR HIS RECENT ADMISSION, FORGETFUL ABOUT THINGS, SAID THAT HE'S AT [facility], ORIENTATED TO HIS NAME AND TO THE DATE. PIV PLACED FOR IV ABX.
[2022-09-20] MEDS ORDERED: Prinivil10 MG PO (15:18)
--- NOTE | 2022-09-20 16:32 | NUR ---
DISCHARGE NOTE MR JOINER IS ORIENTATED TO SELF, "HOSPITAL" NOT [facility], SEPTEMBER 2022. HE HAS DENIED SUICIDE IDEATION TODAY, HAD PSYCH TELE EVALUATION. HOLD REMOVED. PT DISCHARGED HOME AT 1627HRS. HIS CAME TO GET HIM. SHE IS HIS CAREGIVER AT HOME. SHE WAS GIVEN RESOURCES FOR EXTRA HELP FROM VP OF DIGITAL MARKETING. SHE SAID THAT SHE HAS HOME HEALTH SET UP FROM RECENT DISCHARGE. VERBALISED UNDERSTANDING OF WRITTEN AND VERBAL DISCHARGE INSTRUCTIONS. SHE WHEELED PT OUT FOR D/C IN WHEELCHAIR, DECLINED ASSSITANCE TO THE CAR. PIV REMOVED.
[2022-09-21] MEDS ORDERED: CEFD300 PO (19:55)
[2022-09-22] MEDS ORDERED: CEFP500 PO (11:28)
== END 2022-09-20 16:27 | disposition home or self-care (01) ==
LOC: ER 18:31 → MEDS 18:32 → ER 18:32 → EOR 18:32 → MEDS 09-20 03:57
PROVIDERS: ADMIT Student in an Organized Health Care Education/Training Program
DX: F31.9 Bipolar disorder, unspecified (principal); E11.9 Type 2 diabetes mellitus without complications; E87.1 Hypo-osmolality and hyponatremia; D64.9 Anemia, unspecified; F03.90 Unspecified dementia, unspecified severity, without behavioral disturbance, psychotic disturbance, mood disturbance, and anxiety; E78.5 Hyperlipidemia, unspecified; F32.9 Major depressive disorder, single episode, unspecified; N17.9 Acute kidney failure, unspecified; G89.29 Other chronic pain; Z88.8 Allergy status to other drugs, medicaments and biological substances; Z91.041 Radiographic dye allergy status; Z79.4 Long term (current) use of insulin; Z20.822 Contact with and (suspected) exposure to COVID-19
CPT/HCPCS: 0241U; 36415; 70450; 80053; 81001; 82947; 83036; 84443; 85025; 87086; 87106; 96372; 96375; 99285-25; A9270; G0378; G0480; J0696; J1650; J1815